=== PATIENT | female | born 1955 | race Caucasian/White ===

== ENCOUNTER → 2017-12-06 09:00 | Outpatient (CLI) | payer OTHER, SELFPAY ==
[2017-12-06 10:02] LABS: Absolute Lymphocyte Count 1.74 X10^3/ul (0.83-4.51); Absolute Neutrophil Count 4.2 X10^3/uL (2.0-7.7); Basophil# 0.03 X10^3/uL; Basophil% 0.5 % (0-1); Differential Indicated SCAN CRITERIA MET; Eosinophil# 0.08 X10^3/uL; Eosinophils% 1.2 % (0-5); Hematocrit 36.4 % (37-47); Lymphocyte # 1.74 X10^3/ul (4.0); Lymphocyte % 26.5 % (19-41); Mean Corp Hgb Conc 30.2 g/gl (32-36); Mean Corpuscular Volume 72.8 fL (81-99); Mean Platelet Vol. 9.6 fl (6.2-12.0); Monocyte# 0.51 X10^3/uL; Monocyte% 7.8 % (0-10); Neutrophil # 4.18 X10^3/uL (2.7-7.7); Neutrophil % 63.7 % (47-70); POSITIVE COUNT NO; POSITIVE DIFFERENTIAL NO; POSITIVE MORPHOLOGY YES; Platelet Count 378 K/mm3 (150-450); RBC Distribution Width CV 19.4 % (11.6-14.6); RBC Distribution Width SD 49.3 fl (35.1-43.9); White Blood Count 6.6 K/mm3 (4.4-11.0)
[2017-12-06 10:36] LABS: AST(SGOT) 14 U/L (15-37); Alanine Aminotransfer ALT/SGPT 22 U/L (13-56); Albumin, Serum 3.7 g/dL (3.2-5.0); Alkaline Phosphatase 59 U/L (45-117); Anion Gap 8 (5-15); BUN 16 mg/dL (7-18); BUN/Creat Ratio 27.7 RATIO (10-20); Calcium,Total 8.5 mg/dL (8.5-10.1); Chloride 100 mmol/L (98-107); Creatinine, Serum 0.58 mg/dL (0.55-1.02); EST Glomerular Filtration Rate 113 mL/min (>60); Est Glom Filt Rate - Afr Amer 137 mL/min (>60); Globulin 3.6 g/dL (2.2-4.2); Glucose 146 mg/dL (74-106); Potassium 4.5 mmol/L (3.5-5.1); Protein, Total 7.3 g/dL (6.4-8.2); Sodium Level 136 mmol/L (136-145); Thyroid Stim Hormone (TSH) 1.35 uIU/mL (0.358-3.74)
[2017-12-06 10:53] LABS: Anisocytosis 1+; Differential Comment SCAN; Hypochromasia 1+; Microcytosis 1+; Polychromasia 1+
[2017-12-08 08:01] LABS: Hep C Antibodies <0.1 s/co ratio (0.0-0.9)
[2017-12-08 09:55] LABS: Vitamin D,25 Hydroxy 14.7 ng/mL (19.95-100.01)
== END ==
PROVIDERS: Family Provider Family Medicine Geriatric Medicine; PCP Family Medicine Geriatric Medicine; Visit Provider Family Medicine Geriatric Medicine
DX: E11.9 Type 2 diabetes mellitus without complications (principal); E55.9 Vitamin D deficiency, unspecified; I10 Essential (primary) hypertension; Z13.89 Encounter for screening for other disorder
CPT/HCPCS: 36415; 80053; 82306; 84443; 85025; 86803

== ENCOUNTER → 2018-01-05 15:30 | Outpatient (CLI) | payer OTHER, SELFPAY | PROVIDERS: Family Provider Family Medicine Geriatric Medicine; PCP Family Medicine Geriatric Medicine; Visit Provider Family Medicine Geriatric Medicine | DX: R68.83 Chills (without fever) (principal) | CPT/HCPCS: 87633 ==

== ENCOUNTER → 2018-06-10 16:14 | Outpatient (CLI) | payer OTHER, SELFPAY | PROVIDERS: Family Provider Family Medicine Geriatric Medicine; PCP Family Medicine Geriatric Medicine; Visit Provider Family Medicine Geriatric Medicine | DX: E11.9 Type 2 diabetes mellitus without complications (principal); E55.9 Vitamin D deficiency, unspecified; I10 Essential (primary) hypertension ==

== ENCOUNTER → 2018-09-21 15:35 | Outpatient (CLI) | payer OTHER, SELFPAY ==
[2018-09-21 17:43] LABS: ALB/GLOB Ratio 0.9 RATIO (0.9-2.4); AST(SGOT) 17 U/L (15-37); Alanine Aminotransfer ALT/SGPT 27 U/L (13-56); Albumin, Serum 3.7 g/dL (3.2-5.0); Alkaline Phosphatase 79 U/L (45-117); Anion Gap 12 (5-15); BUN 21 mg/dL (7-18); Calcium,Total 8.7 mg/dL (8.5-10.1); Chloride 104 mmol/L (98-107); Creatinine, Serum 0.72 mg/dL (0.55-1.02); EST Glomerular Filtration Rate 87 mL/min (>60); Est Glom Filt Rate - Afr Amer 105 mL/min (>60); Globulin 3.9 g/dL (2.2-4.2); Glucose 159 mg/dL (74-106); Potassium 4.6 mmol/L (3.5-5.1); Protein, Total 7.6 g/dL (6.4-8.2); Sodium Level 138 mmol/L (136-145); Thyroid Stim Hormone (TSH) 1.14 uIU/mL (0.358-3.74)
[2018-09-21 18:38] LABS: Absolute Lymphocyte Count 2.36 X10^3/ul (0.83-4.51); Absolute Neutrophil Count 4.8 X10^3/uL (2.0-7.7); Basophil# 0.05 X10^3/uL; Basophil% 0.6 % (0-1); Eosinophil# 0.09 X10^3/uL; Eosinophils% 1.1 % (0-5); Hematocrit 35.3 % (37-47); Hemoglobin 10.3 g/dl (12.0-15.0); Lymphocyte # 2.36 X10^3/ul (4.0); Lymphocyte % 29.9 % (19-41); Mean Corp Hgb Conc 29.2 g/gl (32-36); Mean Corpuscular Volume 71.9 fL (81-99); Mean Platelet Vol. 9.8 fl (6.2-12.0); Monocyte# 0.54 X10^3/uL; Monocyte% 6.8 % (0-10); Neutrophil # 4.83 X10^3/uL (2.7-7.7); Neutrophil % 61.2 % (47-70); Platelet Count 407 K/mm3 (150-450); RBC Distribution Width CV 18.8 % (11.6-14.6); Red Blood Count 4.91 M/mm3 (4.2-5.4); White Blood Count 7.9 K/mm3 (4.4-11.0)
[2018-09-21 18:41] LABS: Differential Indicated SCAN CRITERIA MET; POSITIVE COUNT NO; POSITIVE DIFFERENTIAL NO; POSITIVE MORPHOLOGY YES
[2018-09-21 22:13] LABS: Differential Comment SCANNED
[2018-09-23 12:51] LABS: Hep C Antibodies <0.1 s/co ratio (0.0-0.9)
== END ==
PROVIDERS: Family Provider Family Medicine Geriatric Medicine; PCP Family Medicine Geriatric Medicine; Visit Provider Family Medicine Geriatric Medicine
DX: I10 Essential (primary) hypertension (principal); Z13.89 Encounter for screening for other disorder
CPT/HCPCS: 36415; 80053; 84443; 85025; 86803

== ENCOUNTER → 2018-10-26 12:52 | Outpatient (CLI) | payer OTHER, SELFPAY ==
[2018-10-06 15:09] VITALS: BMI 69.0
[2018-10-26 13:44] VITALS: BP 178/83; PULSE 100; RESP 18; TEMP 36.8; BMI 72.6
== END ==
LOC: MEDOUTP 12:53
PROVIDERS: Family Provider Family Medicine Geriatric Medicine; PCP Family Medicine Geriatric Medicine; Referring Provider Family Medicine Geriatric Medicine; Visit Provider Family Medicine Geriatric Medicine
DX: K90.9 Intestinal malabsorption, unspecified (principal); D50.9 Iron deficiency anemia, unspecified
CPT/HCPCS: 96365; J1756; J7050; A4216

== ENCOUNTER → 2018-10-28 14:35 | Outpatient (CLI) | payer OTHER, SELFPAY ==
[2018-10-26 13:44] VITALS: BMI 72.6
[2018-10-28 15:01] VITALS: BP 185/73; PULSE 83; RESP 16; TEMP 36.6; O2SAT 98; BMI 72.6
== END ==
LOC: MEDOUTP 14:35
PROVIDERS: Family Provider Family Medicine Geriatric Medicine; PCP Family Medicine Geriatric Medicine; Referring Provider Family Medicine Geriatric Medicine; Visit Provider Family Medicine Geriatric Medicine
DX: K90.9 Intestinal malabsorption, unspecified (principal); D50.9 Iron deficiency anemia, unspecified
CPT/HCPCS: 96365; J1756; A4216

== ENCOUNTER → 2018-10-29 14:46 | Outpatient (CLI) | payer OTHER, SELFPAY ==
[2018-10-26 13:44] VITALS: BMI 72.6
[2018-10-28 15:01] VITALS: BMI 72.6
[2018-10-29 15:26] VITALS: BP 98/68; PULSE 80; RESP 16; TEMP 36.6; O2SAT 97; BMI 72.6
== END ==
PROVIDERS: Family Provider Family Medicine Geriatric Medicine; PCP Family Medicine Geriatric Medicine; Referring Provider Family Medicine Geriatric Medicine; Visit Provider Family Medicine Geriatric Medicine
DX: K90.9 Intestinal malabsorption, unspecified (principal); D50.9 Iron deficiency anemia, unspecified
CPT/HCPCS: 96365; J1756; J7050; A4216

== ENCOUNTER → 2018-10-30 14:31 | Outpatient (CLI) | payer OTHER, SELFPAY ==
[2018-10-26 13:44] VITALS: BMI 72.6
[2018-10-29 15:26] VITALS: BMI 72.6
[2018-10-30 14:58] VITALS: BP 158/93; PULSE 73; RESP 16; TEMP 36.2; O2SAT 98; BMI 72.6
== END ==
PROVIDERS: Family Provider Family Medicine Geriatric Medicine; PCP Family Medicine Geriatric Medicine; Referring Provider Family Medicine Geriatric Medicine; Visit Provider Family Medicine Geriatric Medicine
DX: D50.9 Iron deficiency anemia, unspecified (principal); K90.9 Intestinal malabsorption, unspecified
CPT/HCPCS: 96365; J1756; J7050; A4216

== ENCOUNTER → 2018-11-02 12:29 | Outpatient (CLI) | payer OTHER, SELFPAY ==
[2018-10-26 13:44] VITALS: BMI 72.6
[2018-10-30 14:58] VITALS: BMI 72.6
[2018-11-02 12:37] VITALS: BP 181/72; PULSE 77; RESP 18; TEMP 36.6; O2SAT 99; BMI 72.6
== END ==
PROVIDERS: Family Provider Family Medicine Geriatric Medicine; PCP Family Medicine Geriatric Medicine; Referring Provider Family Medicine Geriatric Medicine; Visit Provider Family Medicine Geriatric Medicine
DX: D50.9 Iron deficiency anemia, unspecified (principal); K90.9 Intestinal malabsorption, unspecified
CPT/HCPCS: 96365; 96366; J1756; J7050; A4216

== ENCOUNTER → 2018-11-12 07:00 | Outpatient (CLI) | payer OTHER, SELFPAY ==
[2018-11-02 12:37] VITALS: BMI 72.6
--- NOTE | 2018-11-12 06:58 | BI_ITS ---
MAMMOGRAPHY - BILATERAL SCREENING REASON FOR EXAM: Female, 62 years old. Routine annual screening examination. PERTINENT HISTORY: Non-contributory. TECHNIQUE: Digital bilateral breast salud (3D mammographic acquisition) in the CC and MLO projections. 2-D mediolateral oblique (MLO) and craniocaudad (CC) views of both breasts were obtained. CAD: Full Field Digital Mammography with Computer Added Detection was performed. COMPARISON: Comparison is made with prior study dated October 16, 2016 and January 20, 2014. FINDINGS: Breast Composition: The breasts are almost entirely fatty. There are no dominant masses or suspicious calcifications. No other significant abnormalities are identified. There has been no significant change since the prior study. BI/SCREENING MAMM (CAD), BILAT IMPRESSION: Stable bilateral screening mammogram. Yearly follow-up mammogram recommended. (A) ASSESSMENT CATEGORY: BIRADS Category 1: Negative. A letter regarding these results will be sent to the patient by the facility within 30 days. Approximately 10% of breast cancers are not detected by mammography. A normal mammogram should not delay biopsy of a clinically suspicious abnormality. [id number] Electronically Signed: Ham Kaplan MD at 8:37 EST Tel [phone], Service support ,
== END ==
PROVIDERS: Family Provider Family Medicine Geriatric Medicine; PCP Family Medicine Geriatric Medicine; Visit Provider Family Medicine Geriatric Medicine
DX: Z12.31 Encounter for screening mammogram for malignant neoplasm of breast (principal)
CPT/HCPCS: 77063; 77067

== ENCOUNTER 2019-01-01 09:21 | Observation (INO) | payer OTHER, SELFPAY ==
[2018-11-02 12:37] VITALS: BMI 72.6
[2019-01-01] VITALS (8 sets, daily range): BP systolic 121–145; BP diastolic 68–85; PULSE 69–101; RESP 15–18; TEMP 35.6–36.7; O2SAT 92–99; BMI 71.2; BMI 71.3; BMI 72.7
--- NOTE | 2019-01-01 09:37 | CT_ITS ---
STUDY: CTA OF THE BRAIN REASON FOR EXAM: Female, 63 years old. Headaches. Neck pain. RADIATION DOSAGE (If Supplied By Facility): CTDIvol = ( 29.92 ) mGy, DLP = ( 1069.53 ) mGycm TECHNIQUE: CT angiography was performed with a multi-detector CT scanner. Data acquisition was obtained from the skull base through the vertex following intravenous administration of Isovue 370 100ML IV. MIP images were reconstructed from the axial data set. Post-processing of the angiographic images was performed, with multiplanar reformation and 3D reconstruction. Individualized dose optimization techniques were used for this CT. COMPARISON: None. FINDINGS: Normal bilateral petrous carotid arteries. There is calcified plaque formation of the right cavernous carotid artery, without a cross-sectional luminal stenosis. There is calcified plaque formation of the left cavernous carotid artery, without a cross-sectional luminal stenosis. Normal right A1 segments of the anterior cerebral artery. Normal left A1 segments of the anterior cerebral artery. Normal intact anterior communicating artery (ACOM). Normal bilateral A2 segments of the anterior cerebral arteries. Normal right M1 and M2 segments of the middle cerebral arteries, with a normal M1 bifurcation. Normal left M1 and M2 segments of the middle cerebral arteries, with a normal M1 bifurcation. Normal right posterior communicating artery (PCOM). Normal left posterior communicating artery (PCOM). Normal bilateral vertebral arteries. Normal basilar artery with a normal basilar bifurcation. The visualized bilateral superior cerebellar (SCA) arteries are normal. Normal bilateral P1, P2 and visualized P3 segments of the posterior cerebral arteries. There is no demonstrated aneurysm of the [place] of [place]. There is no demonstrated abnormality of the visualized brain. CT/CTA Head W/WO Contrast IMPRESSION: Normal [place] of [place] without a demonstrated aneurysm or hemodynamically significant stenosis. Electronically Signed: Ham Kaplan, at 11:03 EST , Service support ,
--- NOTE | 2019-01-01 09:37 | CT_ITS ---
STUDY: CT BRAIN WITHOUT CONTRAST REASON FOR EXAM: Female, 63 years old. Severe headaches. RADIATION DOSAGE (If Supplied By Facility): CTDIvol = ( 44.99 ) mGy, DLP = ( 779.24 ) mGycm TECHNIQUE: Transaxial CT imaging of the brain was performed without administration of intravenous contrast material. Individualized dose optimization techniques were used for this CT. COMPARISON: Comparison is made with prior study dated March 03, 2010. FINDINGS: Normal soft tissue structures. There is hyperostosis frontalis internus. Normal size ventricles and extra-axial spaces for the patient's age. Normal white matter tracts of the cerebral hemispheres. Normal basal ganglia and thalami. Normal brainstem. Normal cerebellum. There is no intracranial hemorrhage. There are no findings of an acute ischemic infarction. Normal visualized paranasal sinuses. CT/Brain/Head without Contrast IMPRESSION: Normal unenhanced CT scan of the brain. Electronically Signed: Ham Kaplan, at 11:39 EST , Service support ,
--- NOTE | 2019-01-01 09:37 | CT_ITS ---
STUDY: CTA NECK WITH CONTRAST REASON FOR EXAM: Female, 63 years old. Severe headaches and neck pain. Paresthesia of the left upper extremity. RADIATION DOSAGE (If Supplied By Facility): CTDIvol = ( ) mGy, DLP = ( ) mGycm TECHNIQUE: CT angiography with multi-detector data acquisition was performed from the aortic arch to the skull base following intravenous administration of Isovue 370 100ML IV. MIP images were reconstructed from the axial data set. Post-processing of the angiographic images was performed, with multiplanar reformation and 3D reconstruction. Individualized dose optimization techniques were used for this CT. COMPARISON: None. FINDINGS: Inhomogeneous enlargement of the thyroid. AORTIC ARCH: There is atherosclerotic calcific plaque formation of the aortic arch and great vessels arising from the aortic arch, without a hemodynamically significant stenosis. There is a normal origin of the brachiocephalic, left common carotid, and left subclavian arteries. RIGHT CAROTID ARTERIES: Normal right common carotid artery (CCA). Normal right common carotid bulb. Normal origin of the right internal carotid (ICA) artery without a hemodynamically significant stenosis. Normal visualized cervical portion of the right internal carotid artery. Normal origin of the right external carotid artery (ECA). LEFT CAROTID ARTERIES: Normal left common carotid artery (CCA). Normal left common carotid bulb. Normal origin of the left internal carotid (ICA) artery without a hemodynamically significant stenosis. Normal visualized cervical portion of the left internal carotid artery. Normal origin of the left external carotid artery (ECA). VERTEBRAL ARTERIES: Normal bilateral vertebral arteries. CT/CTA Neck W/WO Contrast IMPRESSION: Normal bilateral cervical carotid and vertebral arteries. Electronically Signed: Ham Kaplan, at 11:02 EST , Service support ,
[2019-01-01] MEDS: 0.9% Normal Saline 1,000 ML 150 ML IV (10:07)
[2019-01-01] MEDS: proMETHazine 25 MG/ML Syringe 12.5 MG IV (10:07)
[2019-01-01] MEDS: Morphine 4 MG/ML Syringe IV ×2 (10:07→11:10)
[2019-01-01 10:16] LABS: Anion Gap 6 (5-15); BUN 24 mg/dL (7-18); BUN/Creat Ratio 32.5 RATIO (10-20); Calcium,Total 8.8 mg/dL (8.5-10.1); Chloride 105 mmol/L (98-107); Creatinine, Serum 0.74 mg/dL (0.55-1.02); EST Glomerular Filtration Rate 85 mL/min (>60); Est Glom Filt Rate - Afr Amer 103 mL/min (>60); Glucose 114 mg/dL (74-106); Potassium 4.3 mmol/L (3.5-5.1); Sodium Level 137 mmol/L (136-145)
[2019-01-01 10:25] LABS: Erythrocyte Sedimentation Rate 21 mm/hr (0-30)
[2019-01-01 10:31] LABS: Absolute Lymphocyte Count 2.09 X10^3/ul (0.83-4.51); Absolute Neutrophil Count 3.3 X10^3/uL (2.0-7.7); Basophil# 0.03 X10^3/uL; Basophil% 0.5 % (0-1); Differential Indicated SCAN CRITERIA MET; Eosinophil# 0.08 X10^3/uL; Eosinophils% 1.4 % (0-5); Hematocrit 42.3 % (37-47); Hemoglobin 13.3 g/dl (12.0-15.0); Lymphocyte # 2.09 X10^3/ul (4.0); Lymphocyte % 35.5 % (19-41); Mean Corp Hgb Conc 31.4 g/gl (32-36); Mean Corpuscular Hgb 25.7 pg (27.0-32.0); Mean Corpuscular Volume 81.8 fL (81-99); Monocyte# 0.37 X10^3/uL; Monocyte% 6.3 % (0-10); Neutrophil # 3.31 X10^3/uL (2.7-7.7); Neutrophil % 56.1 % (47-70); POSITIVE COUNT NO; POSITIVE DIFFERENTIAL NO; POSITIVE MORPHOLOGY YES; Platelet Count 294 K/mm3 (150-450); RBC Distribution Width CV 24.2 % (11.6-14.6); RBC Distribution Width SD 68.4 fl (35.1-43.9); Red Blood Count 5.17 M/mm3 (4.2-5.4); White Blood Count 5.9 K/mm3 (4.4-11.0)
--- NOTE | 2019-01-01 11:14 | MRI_ITS ---
STUDY: MRI BRAIN WITHOUT CONTRAST REASON FOR EXAM: Female, 63 years old. Left hand numbness, headache TECHNIQUE: Standardized multiplanar fat and water weighted pulse sequences were obtained. COMPARISON: None CT head same day FINDINGS: Diffusion weighted sequence is normal. There are a few punctate areas of increased T2 signal within the deep white matter.. Normal bilateral basal ganglia. Normal thalami. There is no extra-axial fluid accumulation. Normal flow voids within the major intracranial circulation suggesting patency by spin echo criteria. Normal sella turcica, pituitary gland, infundibular stalk, optic chiasm and hypothalamus. Normal tectal plate and pineal gland. Normal midbrain, trisha and medulla. Normal cerebellum. Normal basal cisterns. Normal bilateral temporal bones. Normal bilateral internal auditory canals. No demonstrated orbital abnormality, within the constraints of a routine brain study. Normal visualized paranasal sinuses. Normal calvarium and skull base. Normal visualized soft tissue structures. Normal visualized upper cervical spine. MRI/Brain without Contrast IMPRESSION: No MRI evidence for acute infarct Minimal increased T2 signal abnormalities within the white matter which could represent old small vessel ischemic changes versus Virchow-Junior spaces Electronically Signed: Nash Bill, at 16:22 EST Tel , Service support ,
--- NOTE | 2019-01-01 11:14 | MRI_ITS ---
STUDY: MRI CERVICAL SPINE WITHOUT CONTRAST REASON FOR EXAM: Female, 63 years old. A simple headache, left hand radiculopathy, numbness TECHNIQUE: Standardized fat and water weighted pulse sequences were obtained in the sagittal and axial planes. COMPARISON: None FINDINGS: Normal foramen magnum and brainstem-cervical cord junction. There are degenerative changes at C1-C2. Normal anterior atlantoaxial articulation. Normal odontoid process. There is loss of normal cervical lordosis.. Normal vertebral bodies and posterior osseous elements. C2-3: Normal endplates. Normal disc height, signal and morphology. Normal central canal and intervertebral neural foramina. C3-4: Normal endplates. Normal disc height, signal and morphology. Normal central canal and intervertebral neural foramina. There is mild to moderate left facet degenerative changes with moderate right facet degenerative changes. C4-5: There is posterior bulging annulus with disc osteophyte complex. There is increased T2 signal within the posterior disc margin. There is mild cord compression and mild central canal stenosis. There is mild right foraminal and left foraminal stenosis. There is Significant uncinate hypertrophy. There are moderate facet degenerative changes. C5-6: There is disc space narrowing. There is mild posterior broad-based posterior bulging annulus. There is significant uncinate hypertrophy and mild central canal stenosis. There is mild bilateral foraminal stenosis. There are moderate facet degenerative changes. There are Schmorl's nodes at C5 and C6. C6-7: There is mild posterior bulging annulus. There is uncinate hypertrophy. There is mild facet spondylosis. No central canal or foraminal stenosis C7-T1: Normal endplates. Normal disc height, signal and morphology. Normal central canal and intervertebral neural foramina. Normal cervical cord. Normal visualized soft tissue structures. MRI/Spine Cervical (Routine) IMPRESSION: Loss of normal cervical lordosis likely due to muscular spasm Multilevel spondylosis as above multilevel disc osteophyte complexes uncinate hypertrophy, facet spondylosis with multilevel mild central canal and foraminal stenoses Electronically Signed: Nash Bill, at 16:31 EST Tel , Service support ,
--- NOTE | 2019-01-01 11:15 | ED.DCSUM_ITS ---
- ER Visit Summary Date of Service: 01/01/19 Chief Complaint: [Headache and neck pain] History of Present Illness: The patient is a 63 F [presents to the emergency department with complaint of severe headache. Patient states that initially he started with paresthesias off and on in her left arm yesterday. Patient states that she has arthritis and has had history of carpal tunnel so she did not think much of it. This morning around 6:30 AM patient developed severe headache to the left side of her head and left thigh. Patient complains of pain at the base of her skull on the left. She denies any falls or head injuries. She denies any fever or recent illness. She is never had a headache like this before. Patient does complain of photophobia. She is had no nausea or vomiting. Patient is never had a headache like this before. Patient denies any weakness or difficulty with speech.] Physical Examination: [HEENT-PERRLA, EOMI. Cranial nerves II through XII grossly intact. TMs clear. Mucous membranes moist. No adenopathy. Patient does have some tenderness over the left upper neck and Cardiovascular-regular rate and rhythm without murmur or ectopy Lungs-clear to auscultation, chest wall stable without crepitus or subcu emphysema Abdomen-normoactive bowel sounds, soft, nontender, no rebound or rigidity, no peritoneal signs. Neuro nept-bnqfai-vvlk and heel buenrostro testing within normal limits, negative Romberg, negative pronator drift, fundi benign. NIH stroke scale is 0. Extremities-intact ?4, normal range of motion, normal pulses, atraumatic] Test Results: [CT scan of the brain without contrast as well as CTA of the head and neck were normal. CBC with differential is normal. Chemistries were normal. Sed rate was 21.] Emergency Department Course and Treatment: [Patient initially was medicated with morphine and Phenergan as well as IV fluids. Initially she had good pain relief and her pain went on a 4 out of 10. The pain did return and became severe once again and she was given another dose of morphine and was started on Depakote thousand milligrams IV.] Treatment Plan: [Patient will be admitted for further workup and treatment. At this point I do not suspect stroke although she is not a TPA candidate as her NIH was a 0 and she is had symptoms for greater than 12 hours. At this point I do not suspect a subarachnoid hemorrhage as the etiology of her symptoms. Possible she may have an occipital neuritis.] Disposition: [Admit] Impression: [Intractable headache Neck pain Paresthesias left arm] This note was generated with Crystal [employer] dictation software. It may contain incorrect words, spelling, and punctuation that were not noted in review of the chart prior to signing ED Disposition - Plan for ED Patient: Referrals: Tani Diez Chi, MD [Primary Care Provider] -
--- NOTE | 2019-01-01 11:16 | NURSING ---
MED SURG ASHTYN OBS INTRACTABLE HEADACHE, PARAESTHESIAS LEFT ARM
--- NOTE | 2019-01-01 11:28 | PCM.HP.STD ---
Problem List (1) Diabetes mellitus type 2 in obese Status: Chronic (2) Hypertension Status: Chronic (3) Degenerative joint disease Status: Chronic (4) Status post total knee replacement, bilateral Status: Chronic (5) Rheumatoid arthritis Status: Chronic (6) Neck pain Status: Acute (7) Cervical neuropathy Status: Acute History of Present Illness Date of Admission: 01/01/19 Chief Complaint: Sudden onset of headache and neck pain today The patient is a 63 year old F morbid obesity BMI 71, diabetes mellitus type 2 came to headache with sudden onset of neck pain with severe headache. She woke up today at 6:30 AM with severe headache along with left side of head and neck. She also has left upper extremity numbness which started yesterday but got worse today. She has chronic weakness of bilateral hand muscle secondary to carpal tunnel syndrome. Denies previous history of headache, neck pain or migraine or seizure disorder. Denies temporal headache. Denies lower extremity weakness. Normal lower urinary tract symptoms/constipation. No abnormal involuntary movements She has chronic rheumatologic disease including severe degenerative joint disease status post bilateral TKR, rheumatoid arthritis. Initial imaging studies in the ER including CT brain, CTA head and neck was unremarkable. Basic blood work is remarkable CRP 3.38, ESR 21, BUN 24. Past Medical History Past Medical History (Chronic Problems): Chronic Problems (Last Updated 10/06/18 @ 15:11 by Felicita Jacob) Diabetes mellitus type 2 in obese (Chronic) Hypertension (Chronic) Degenerative joint disease (Chronic) Status post total knee replacement, bilateral (Chronic) Rheumatoid arthritis (Chronic) Medical History: Medical History (Last Updated 10/06/18 @ 15:11 by Felicita Jacob) Anemia D64.9 Anxiety F41.9 Carpal tunnel syndrome G56.00 Environmental allergies Z91.09 Fibromyalgia M79.7 Osteoarthritis M19.90 Rheumatoid arthritis M06.9 Hypertension I10 Allergies codeine Adverse Reaction (Verified 01/01/19 09:22) Other enoxaparin sodium [From Lovenox] Adverse Reaction (Verified 01/01/19 09:22) Other Home Medications: Ambulatory Orders Medication Instructions Recorded Citalopram [Celexa] 20 mg PO DAILY 03/29/16 Cyclobenzaprine [Flexeril] 10 mg PO DAILY PRN 03/29/16 Gabapentin [Neurontin] 300 mg PO DAILY 03/29/16 Lisinopril [Zestril] 20 mg PO DAILY 03/29/16 Cholecalciferol (Vitamin D3) 2,000 unit PO QMONTH 11/01/16 [Vitamin D3] Iron Polysaccharide Complex 150 mg PO DAILY 11/01/16 [Ferrex 150] Metformin HCl [Glucophage] 500 mg PO BIDCM 11/01/16 Gabapentin [Neurontin] 600 mg PO QHS 01/01/19 Surgical History: Surgical History (Last Updated 10/06/18 @ 15:12 by Felicita Jacob) History of 2 sections Z98.891 History of bilateral knee replacement Z96.653 History of gastric bypass Z98.84 History of thumb surgery Z98.890 Smoking Status: Never smoker Review of Systems Constitutional: Denies: Chills, Fever, Weight Change HEENT: Reports: Head Aches, Visual Changes - Blurry vision and photophobia, -. Denies: Sinus Congestion, Sinus Drainage Cardiovascular: Denies: Chest Pain, Palpitations Respiratory: Denies: Cough, Shortness of breath at rest, Sputum production Gastrointestinal: Denies: Abdominal Pain, Nausea, Vomiting Genitourinary: Denies: Dysuria, Frequency, Hematuria, Hesitancy, Retention, Urgency Musculoskeletal: Reports: Joint Pain, Joint stiffness, Joint swelling, Neck Pain. Denies: Joint Tenderness Skin: Denies: Rash, Wounds Neurological: Reports: Balance problems, Incoordination. Denies: Focal weakness, Numbness, Tingling Psychiatric: Denies: Anxiety, Depression, Homicidal Ideations, Suicidal Ideations Hematologic/ Lymphatic: Denies: Easy Bruising, Easy Bleeding VTE Information - Inpt Only VTE Present on Admission: No VTE Mechan Device Prophylaxis: SCD's VTE Pharm Prophylaxis ordered?: No Reason prophylaxis not ordered:: Drug Allergy - Physical Exam General: Alert, Oriented x3, Cooperative HEENT: Atraumatic, PERRLA, EOMI, Normocephalic Neck: Supple, No JVD, Negative Carotid Bruits Lungs: Clear to auscultation, No rhonchi, No wheeze, No rales, Diminished Cardiovascular: Regular rate, Regular Rhythm, Normal S1, Normal S2, No murmurs Abdomen: Bowel Sounds Present, Soft, Non Tender, Non-Distended Extremities: No edema, Capillary Refill Less than 3 Seconds Skin: No rashes, No breakdown Musculoskeletal: No Tenderness to Palpation of Joints or Extremities, Arthritic Changes, Tenderness - Neck, C-spine tenderness Neurological: Cranial nerves II-XII grossly intact, Deep Tendon Reflexes 2+/4 and Symmetrical, - - Strength is 5/5 in upper extremity and arm and forearm. Bilateral chronic hand weakness secondary to carpal tunnel syndrome Psych/Mental Status: Normal Affect, Appropriate Vital Signs Temp Pulse Resp BP Pulse Ox 96.0 F L 101 H 15 121/85 H 98 01/01/19 09:22 01/01/19 09:22 01/01/19 09:22 01/01/19 09:22 01/01/19 09:22 Oxygen Delivery Method Room Air Weight: 402 lb 5.498 oz Body Mass Index (BMI) 71.2 Laboratory Tests Past 24 Hrs 01/01/19 01/01/19 09:55 09:55 WBC 5.9 RBC 5.17 Hgb 13.3 Hct 42.3 MCV 81.8 MCH 25.7 L MCHC 31.4 L RDW 24.2 H RDW Differential 68.4 H Plt Count 294 MPV 10.0 Immature Gran % (Auto) 0.200 Neut % (Auto) 56.1 Lymph % (Auto) 35.5 [place] % (Auto) 6.3 Eos % (Auto) 1.4 Baso % (Auto) 0.5 Absolute Neuts (auto) 3.3 Absolute Lymphs (auto) 2.09 Total Counted Not Reportable Differential Comment COMMENT ESR 21 Sodium 137 Potassium 4.3 Chloride 105 Carbon Dioxide 26.0 Anion Gap 6 BUN 24 H Creatinine 0.74 Estim Creat Clear Calc 65.20 Est GFR (MDRD) Af Amer 103 Est GFR (MDRD) Non-Af 85 BUN/Creatinine Ratio 32.5 H Glucose 114 H Calcium 8.8 Assessment/Plan All Active Problems (Last Updated 10/06/18 @ 15:11 by Felicita Jacob) Neck pain (Acute) Cervical neuropathy (Acute) The patient is a 63 year old F morbid obesity BMI 71, diabetes mellitus type 2 came to [facility] with sudden onset of neck pain with severe headache. She woke up today at 6:30 AM with severe headache along with left side of head and neck. She also has left upper extremity numbness which started yesterday but got worse today. She has chronic weakness of bilateral hand muscle secondary to carpal tunnel syndrome. Denies previous history of headache, neck pain or migraine or seizure disorder. Denies temporal headache. Denies lower extremity weakness. Normal lower urinary tract symptoms/constipation. No abnormal involuntary movements She has chronic rheumatologic disease including severe degenerative joint disease status post bilateral TKR, rheumatoid arthritis. Initial imaging studies in the ER including CT brain, CTA head and neck was unremarkable. Basic blood work is remarkable CRP 3.38, ESR 21, BUN 24. 1. Severe neck pain and headache with left upper extremity paresthesias history of possible cervical neuropathy: Patient is being admitted in PCU. Discussed with neurologist Dr. Garcia. MRI brain and C-spine ordered. IV fluid normal saline. Patient is started on valproic acid 1 g in the ER and will add 500 mg more to make a total of 1500 mg. Further management as per neurologist recommendation. 2. Diabetes mellitus type 2 with diabetic neuropathy: Accu-Chek before meals and at bedtime and cover with NovoLog sliding scale. A1c tomorrow a.m. 3. Rheumatology conditions: Bilateral diffuse degenerative joint disease, rheumatoid arthritis, hypovitaminosis D: Home medication reconciliation done. PT and OT ordered. 4. Morbid obesity status post gastric bypass surgery 5. DVT prophylaxis: The patient gets open wound after Lovenox injection. Avoid injectable heparin products.started On Eliquis 2.5 mg twice daily Clinical Impression(s) from Imaging Studies Brain CT 01/01/19 09:37 IMPRESSION: Normal unenhanced CT scan of the brain. Head CTA 01/01/19 09:37 IMPRESSION: Normal [place] of [place] without a demonstrated aneurysm or hemodynamically significant stenosis. Neck CTA 01/01/19 09:37 IMPRESSION: Normal bilateral cervical carotid and vertebral arteries. Code Visit OBS E&M: [id number] Initial observation care L3
[2019-01-01 11:49] LABS: CRP 3.38 mg/L (0.0-3.0)
--- NOTE | 2019-01-01 11:53 | CASEMGMT ---
RN CM Assessment Introduced role of RN CM to patient and at bedside. Patient is alert, oriented but d/t headache with lights dimmed- patient agreeable with providing information. Care providers, pharmacy, and demographics verified. Presentation: Admitted for Intractable LOPEZ. CC: LOPEZ/Neck pain. PCP: Dr Tani Diez Specialists: None Preferred Pharmacy: [facility] Insurance: [employer] Prescription Benefit: Yes LNOK: Derik Joe #[phone] Living Arrangements: Patient works for [employer], Lives with her in a Mobile home with ramp. Ambulates independently and with cane as needed. Independent with ADL's. Transportation: Patient drives, to transport on [place]. DME: Cane, Glucometer. Preference of DME Company- through insurance. HHC: Denies past, preference through insurance. SNF: Denies past, preference through insurance. DC PLAN: Home with and no anticipated needs identified. Zulma Parra RNCM
--- NOTE | 2019-01-01 12:18 | ED.RN ---
iv infiltrated unable to administer depacon. dr. sloan aware. keyla to try an iv.
--- NOTE | 2019-01-01 13:02 | PCM.CONS.GEN ---
Problem List (1) Headache Status: Acute (2) Neck pain Status: Acute Reason for Consult Date of Consultation: 01/01/19 Reason for Consultation: Headache, neck pain History of Present Illness: The patient is a 63 year old F with PMH HTN, DM, RA, morbid obesity admitted with severe headache and neck pain. Per patient she woke up at around 4:30 AM this morning (01/01/19), then went to work and around 6:30 AM started having severe occipital headache along with neck pain, with headache radiating to the front on the right side, with stabbing pain in the eye, per patient headache was severe, had photophobia, phonophobia, blurred vision, denies any vomiting, per patient she also felt that her left arm was tingly and numb. She denies any focal motor weakness, speech disturbances, facial droop, vision loss, temporal tenderness or jaw claudication. Per patient she does not get any migraines often. She lives with her , uses cane occasionally when walks long distances, denies any frequent falls, and does drive. CT head and CTA head/neck done on admission did not show anything acute, did not show any hemodynamically significant stenosis or occlusion. Denies any fever or tick bite. [] Past Medical History Past Medical History (Chronic Problems): Chronic Problems (Last Updated 10/06/18 @ 15:11 by Felicita Jacob) Diabetes mellitus type 2 in obese (Chronic) Hypertension (Chronic) Degenerative joint disease (Chronic) Status post total knee replacement, bilateral (Chronic) Rheumatoid arthritis (Chronic) Medical History: Medical History (Last Updated 10/06/18 @ 15:11 by Felicita Jacob) Anemia D64.9 Anxiety F41.9 Carpal tunnel syndrome G56.00 Environmental allergies Z91.09 Fibromyalgia M79.7 Osteoarthritis M19.90 Rheumatoid arthritis M06.9 Hypertension I10 Allergies codeine Adverse Reaction (Verified 01/01/19 09:22) Other enoxaparin sodium [From Lovenox] Adverse Reaction (Verified 01/01/19 09:22) Other Home Medications: Ambulatory Orders Medication Instructions Recorded Citalopram [Celexa] 20 mg PO DAILY 03/29/16 Cyclobenzaprine [Flexeril] 10 mg PO DAILY PRN 03/29/16 Gabapentin [Neurontin] 300 mg PO DAILY 03/29/16 Lisinopril [Zestril] 20 mg PO DAILY 03/29/16 Cholecalciferol (Vitamin D3) 2,000 unit PO QMONTH 11/01/16 [Vitamin D3] Iron Polysaccharide Complex 150 mg PO DAILY 11/01/16 [Ferrex 150] Metformin HCl [Glucophage] 500 mg PO BIDCM 11/01/16 Gabapentin [Neurontin] 600 mg PO QHS 01/01/19 Surgical History: Surgical History (Last Updated 10/06/18 @ 15:12 by Felicita Jacob) History of 2 sections Z98.891 History of bilateral knee replacement Z96.653 History of gastric bypass Z98.84 History of thumb surgery Z98.890 Lives: Spouse/ Significant Other Smoking Status: Never smoker Alcohol: None Drugs: None Review of Systems Constitutional: Reports: - - complete ROS negative except as documented in HPI Patient Problems: Active and Suspected Problems (Last Updated 10/06/18 @ 15:11 by Felicita Jacob) Headache (Acute) - Physical Exam General: Alert HEENT: Normocephalic Neck: Supple Lungs: Normal air movement Cardiovascular: Normal S1, Normal S2 Abdomen: Bowel Sounds Present Extremities: No cyanosis Neurological: - - consious, alert, AoA x3, CN 2-12 grossly intact, power 5/5 all 4 extremities, no sensory loss, no cerebellar signs, no NR, No Brudzinki's sign or Kernig's sign, Reflexes + B/L B/S/T/K/A, gait deferred, Fundus not visualized Psych/Mental Status: Normal Affect Vital Signs Temp Pulse Resp BP Pulse Ox 96.0 F L 101 H 15 121/85 H 98 01/01/19 09:22 01/01/19 09:22 01/01/19 09:22 01/01/19 09:22 01/01/19 09:22 Oxygen Delivery Method Room Air Weight: 182.5 kg Body Mass Index (BMI) 71.2 Laboratory Tests Past 24 Hrs 01/01/19 01/01/19 01/01/19 09:55 09:55 09:55 WBC 5.9 RBC 5.17 Hgb 13.3 Hct 42.3 MCV 81.8 MCH 25.7 L MCHC 31.4 L RDW 24.2 H RDW Differential 68.4 H Plt Count 294 MPV 10.0 Immature Gran % (Auto) 0.200 Neut % (Auto) 56.1 Lymph % (Auto) 35.5 [place] % (Auto) 6.3 Eos % (Auto) 1.4 Baso % (Auto) 0.5 Absolute Neuts (auto) 3.3 Absolute Lymphs (auto) 2.09 Total Counted Not Reportable Differential Comment COMMENT ESR 21 Sodium 137 Potassium 4.3 Chloride 105 Carbon Dioxide 26.0 Anion Gap 6 BUN 24 H Creatinine 0.74 Estim Creat Clear Calc 65.20 Est GFR (MDRD) Af Amer 103 Est GFR (MDRD) Non-Af 85 BUN/Creatinine Ratio 32.5 H Glucose 114 H Calcium 8.8 C-React Prot Ext Range 3.38 H Assessment/Plan All Active Problems (Last Updated 10/06/18 @ 15:11 by Felicita Jacob) Neck pain (Acute) Cervical neuropathy (Acute) Headache (Acute) The patient is a 63 year old F with PMH HTN, DM, RA, morbid obesity admitted with severe headache and neck pain. Per patient she woke up at around 4:30 AM this morning (01/01/19), then went to work and around 6:30 AM started having severe occipital headache along with neck pain, with headache radiating to the front on the right side, with stabbing pain in the eye, per patient headache was severe, had photophobia, phonophobia, blurred vision, denies any vomiting, per patient she also felt that her left arm was tingly and numb. She denies any focal motor weakness, speech disturbances, facial droop, vision loss, temporal tenderness or jaw claudication. Per patient she does not get any migraines often. She lives with her , uses cane occasionally when walks long distances, denies any frequent falls, and does drive. CT head and CTA head/neck done on admission did not show anything acute, did not show any hemodynamically significant stenosis or occlusion. Denies any fever or tick bite. Impression Acute onset LOPEZ/neck pain Possible Status migrainosus vs R/O Cervical radiculopathy Plan -Check MRI brain w/o contrast -Check MRI C spine w/o contrast -ESR-21 -Labs reviewed -Trial of Decadron 4 mg IV q 6 hrly for 24-48 hrs then stop -Toradol 30 mg IV PRN severe LOPEZ q 6 hrly for 24-48 hrs then stop if no contraindication -Depacon 1 g IV BID for 24-48 hrs then stop -Magnesium Sulphate 1 g IV once -Will hold off LP at present given insufficient clinical indication, unless if LOPEZ does not improve may need to obtain -GI/DVT prophylaxis -Fall precautions -Please call with questions if any -Thank you for allowing us to participate in patient's care and management. Code Visit Inpatient E&M: 97989 Init Hosp L3
[2019-01-01] MEDS: APIXABAN 2.5 MG TABLET PO ×2 (14:21→21:18)
[2019-01-01 14:23] LABS: AST(SGOT) 17 U/L (15-37); Alanine Aminotransfer ALT/SGPT 25 U/L (13-56); Albumin, Serum 3.9 g/dL (3.2-5.0); Alkaline Phosphatase 68 U/L (45-117); Bilirubin, Direct 0.08 mg/dL (0.00-0.30); Globulin 3.6 g/dL (2.2-4.2); Protein, Total 7.5 g/dL (6.4-8.2)
[2019-01-01] MEDS: Ketorolac 30 MG/ML Syringe IV (14:26)
[2019-01-01] MEDS: Magnesium Sulfate 1 GM in 0.9% Normal Saline 100 ML IV (14:27)
[2019-01-01] MEDS: 0.9% Normal Saline 1,000 ML 75 ML IV (14:27)
--- NOTE | 2019-01-01 14:59 | NURSING ---
TO MRI PER BED
[2019-01-01 16:26] LABS: Bedside Glucose 126 mg/dL (70-110)
[2019-01-01] MEDS: Senna/Docusate Sodium 1 Tablet 2 TABLET PO (21:16)
[2019-01-01] MEDS: Famotidine 20 MG Tablet PO (21:17)
[2019-01-01] MEDS: Gabapentin 300 MG Capsule 600 MG PO (21:19)
[2019-01-02] VITALS (11 sets, daily range): BP systolic 123–136; BP diastolic 58–77; PULSE 70–86; RESP 16; TEMP 36.3–36.9; O2SAT 92–96
[2019-01-02] MEDS: 0.9% Normal Saline 1,000 ML 75 ML IV ×2 (05:05→21:33)
[2019-01-02] MEDS: Famotidine 20 MG Tablet PO ×2 (08:44→21:24)
[2019-01-02] MEDS: Gabapentin 300 MG Capsule PO ×3 (08:45→21:30)
[2019-01-02] MEDS: Iron Polysaccharide Complex 150 MG CAPSULE PO (08:45)
[2019-01-02] MEDS: Lisinopril 20 MG Tablet PO (08:45)
[2019-01-02] MEDS: Citalopram 20 MG Tablet PO (08:46)
[2019-01-02] MEDS: APIXABAN 2.5 MG TABLET PO ×2 (08:47→21:24)
--- NOTE | 2019-01-02 10:08 | PCM.PN.HOSP ---
Patient Problems: Active and Suspected Problems (Last Updated 10/06/18 @ 15:11 by Felicita Jacob) Headache (Acute) Subjective: Patient is still complaining of headache. Left arm numbness is same. MRI reviewed and explained to the patient in front of her . No fever or chills. Vitals/I&O's: Vital Signs Temp Pulse Resp BP Pulse Ox 97.3 F L 73 16 126/58 H 96 01/02/19 08:37 01/02/19 08:37 01/02/19 08:37 01/02/19 08:37 01/02/19 08:37 Oxygen Delivery Method Room Air Weight: 397 lb 11.422 oz Body Mass Index (BMI) 72.7 Intake and Output for Last 24 Hours 12/31/18 01/01/19 01/02/19 23:59 23:59 23:59 Intake Total 550 / 550 1539 / 1539 Balance 550 / 550 1539 / 1539 General: Alert, Oriented x3, Cooperative HEENT: Atraumatic, PERRLA, EOMI, Normocephalic Neck: Supple, No JVD, Negative Carotid Bruits Lungs: Clear to auscultation, No rhonchi, No wheeze, No rales, Diminished - Air entry is diminished in bilateral lung bases. Cardiovascular: Regular rate, Regular Rhythm, Normal S1, Normal S2, No murmurs Abdomen: Bowel Sounds Present, Soft, Non Tender, Non-Distended Extremities: No cyanosis, Capillary Refill Less than 3 Seconds, Edema Skin: No rashes, No breakdown Musculoskeletal: No Tenderness to Palpation of Joints or Extremities, Arthritic Changes Neurological: Cranial nerves II-XII grossly intact, - - Mild weakness in both hands. Difficulty in the joint disease of lower extremities with chronic mild weakness. Left upper extremity cervical neuropathy paresthesia Psych/Mental Status: Normal Affect, Appropriate Laboratory Results 01/01/19 09:55: WBC 5.9, RBC 5.17, Hgb 13.3, Hct 42.3, MCV 81.8, MCH 25.7 L, MCHC 31.4 L, RDW 24.2 H, RDW Differential 68.4 H, Plt Count 294, MPV 10.0, Immature Gran % (Auto) 0.200, Neut % (Auto) 56.1, Lymph % (Auto) 35.5, Spencer % (Auto) 6.3, Eos % (Auto) 1.4, Baso % (Auto) 0.5, Absolute Neuts (auto) 3.3, Absolute Lymphs (auto) 2.09, Total Counted Not Reportable, Differential Comment COMMENT, ESR 21 01/01/19 09:55: Sodium 137, Potassium 4.3, Chloride 105, Carbon Dioxide 26.0, Anion Gap 6, BUN 24 H, Creatinine 0.74, Estim Creat Clear Calc 65.20, Est GFR (MDRD) Af Amer 103, Est GFR (MDRD) Non-Af 85, BUN/Creatinine Ratio 32.5 H, Glucose 114 H, Calcium 8.8 01/01/19 09:55: C-React Prot Ext Range 3.38 H 01/01/19 09:55: Total Bilirubin 0.20, Direct Bilirubin 0.08, AST 17, ALT 25, Alkaline Phosphatase 68, Total Protein 7.5, Albumin 3.9, Globulin 3.6 01/01/19 16:18: POC Glucose 126 H Current Medications Al Hydroxide/Mg Hydroxide (Mylanta Ii) 30 ml PO Q6H PRN PRN PRN Reason: Gastric burning Apixaban (Eliquis) 2.5 mg PO BID [facility] Last Admin: 01/02/19 08:47 Dose: 2.5 mg Cholecalciferol (Vitamin D) 2,000 unit PO DAILY [facility] Last Admin: 01/02/19 08:45 Dose: Not Given Citalopram Hydrobromide (Celexa) 20 mg PO DAILY [facility] Last Admin: 01/02/19 08:46 Dose: 20 mg Cyclobenzaprine HCl (Flexeril) 10 mg PO DAILY PRN PRN Reason: MUSCLE SPASM Last Admin: 01/01/19 16:28 Dose: 10 mg Dexamethasone Sodium Phosphate (Decadron) 4 mg IV Q6 [facility] Stop: 01/03/19 14:01 Last Admin: 01/02/19 05:04 Dose: 4 mg Famotidine (Pepcid) 20 mg PO BID [facility] Last Admin: 01/02/19 08:44 Dose: 20 mg Gabapentin (Neurontin) 300 mg PO DAILY [facility] Last Admin: 01/02/19 08:45 Dose: 300 mg Gabapentin (Neurontin) 600 mg PO QHS [facility] Last Admin: 01/01/19 21:19 Dose: 600 mg Sodium Chloride () 1,000 mls @ 75 mls/hr IV .[id number] [facility] Last Admin: 01/02/19 05:05 Dose: 75 mls/hr Valproic Acid 500 mg/ Dextrose 55 mls @ 50 mls/hr IV Q8 [facility] Stop: 01/03/19 22:01 Last Admin: 01/02/19 05:04 Dose: 50 mls/hr Ketorolac Tromethamine (Toradol) 15 mg IV Q6H PRN PRN PRN Reason: severe headache Stop: 01/03/19 15:52 Lisinopril (Zestril) 20 mg PO DAILY [facility] Last Admin: 01/02/19 08:45 Dose: 20 mg [facility] Admin: 01/02/19 08:45 Dose: Not Given Ondansetron HCl (Zofran) 4 mg IV Q8H PRN PRN PRN Reason: NAUSEA Polysaccharide [facility]rex 150) [facility] Last Admin: 01/02/19 08:45 Dose: 150 mg Senna/Docusate Sodium (Senokot-S, Ailyn-Colace) 2 tablet PO BID [facility] Last Admin: 01/02/19 08:45 Dose: Not Given Zolpidem Tartrate (Ambien (Generic)) 5 mg PO QHS PRN PRN PRN Reason: INSOMNIA Medical Necessity - Tobacco Use Smoking Status: Never smoker Tobacco Use: Non-smoker Assessment/Plan All Active Problems (Last Updated 10/06/18 @ 15:11 by Felicita Jacob) Neck pain (Acute) Cervical neuropathy (Acute) Headache (Acute) The patient is a 63 year old F morbid obesity BMI 71, diabetes mellitus type 2 came to [facility] with sudden onset of neck pain with severe headache. She woke up today at 6:30 AM with severe headache along with left side of head and neck. She also has left upper extremity numbness which started yesterday but got worse today. She has chronic weakness of bilateral hand muscle secondary to carpal tunnel syndrome. Denies previous history of headache, neck pain or migraine or seizure disorder. Denies temporal headache. Denies lower extremity weakness. Normal lower urinary tract symptoms/constipation. No abnormal involuntary movements She has chronic rheumatologic disease including severe degenerative joint disease status post bilateral TKR, rheumatoid arthritis. Initial imaging studies in the ER including CT brain, CTA head and neck was unremarkable. Basic blood work is remarkable CRP 3.38, ESR 21, BUN 24. 1. Severe neck pain and headache with left upper extremity paresthesias history of possible cervical neuropathy: Patient is being admitted in PCU. Discussed with neurologist Dr. Garcia. MRI brain and C-spine ordered. IV fluid normal saline. Neurologist consult reviewed. Patient was started on IV valproic in ER and neurologist continued it. CRP 3.38. MRI C-spine shows multilevel spondylosis with multilevel disc osteophyte complexes, facet spondylosis with multilevel mild central canal and foraminal stenoses. There is mild cord compression with mild central canal stenosis in C4-5 with increased T2 signal in the posterior disc margin. Patient on Decadron 4 mg every 6 hourly, Depakote 500 mg IV every 8 hourly and Toradol for pain. 2. Diabetes mellitus type 2 with diabetic neuropathy: Accu-Chek before meals and at bedtime and cover with NovoLog sliding scale. A1c tomorrow a.m. 3. Rheumatology conditions: Bilateral diffuse degenerative joint disease, rheumatoid arthritis, hypovitaminosis D: Home medication reconciliation done. PT and OT ordered. 4. Morbid obesity status post gastric bypass surgery 5. DVT prophylaxis: The patient gets open wound after Lovenox injection. Avoid injectable heparin products.started On Eliquis 2.5 mg twice daily Clinical Impression(s) from Imaging Studies Brain CT 01/01/19 09:37 IMPRESSION: Normal unenhanced CT scan of the brain. Head CTA 01/01/19 09:37 IMPRESSION: Normal [place] without a demonstrated aneurysm or hemodynamically significant stenosis. Neck CTA 01/01/19 09:37 IMPRESSION: Normal bilateral cervical carotid and vertebral arteries. Brain MRI 01/01/19 11:14 IMPRESSION: No MRI evidence for acute infarct Minimal increased T2 signal abnormalities within the white matter which could represent old small vessel ischemic changes versus Virchow-Junior spaces Cervical Spine MRI 01/01/19 11:14 IMPRESSION: Loss of normal cervical lordosis likely due to muscular spasm Multilevel spondylosis as above multilevel disc osteophyte complexes uncinate hypertrophy, facet spondylosis with multilevel mild central canal and foraminal stenoses Code Visit Inpatient E&M: [id number] [facility] Hosp L3
[2019-01-02] MEDS: Gabapentin 300 MG Capsule 600 MG PO (21:31)
[2019-01-03 02:59] VITALS: PULSE 72
[2019-01-03 03:30] VITALS: BP 131/76; PULSE 62; RESP 16; TEMP 36.4; O2SAT 95
[2019-01-03 06:56] LABS: Magnesium 2.4 mg/dL (1.6-2.6)
[2019-01-03 06:59] LABS: Anion Gap 10 (5-15); BUN 19 mg/dL (7-18); BUN/Creat Ratio 30.1 RATIO (10-20); Calcium,Total 8.2 mg/dL (8.5-10.1); Chloride 107 mmol/L (98-107); Creatinine, Serum 0.63 mg/dL (0.55-1.02); EST Glomerular Filtration Rate 101 mL/min (>60); Est Glom Filt Rate - Afr Amer 123 mL/min (>60); Estimated Creatinine Clearance 73.23 ml/min; Glucose 271 mg/dL (74-106); Potassium 4.3 mmol/L (3.5-5.1); Sodium Level 139 mmol/L (136-145)
[2019-01-03 07:00] VITALS: PULSE 67
[2019-01-03 07:00] LABS: Hemoglobin A1c 6.8 % (4.2-6.3)
[2019-01-03 08:28] VITALS: O2SAT 96
[2019-01-03 09:00] VITALS: BP 127/68; PULSE 79; RESP 16; TEMP 36.4; O2SAT 97
[2019-01-03] MEDS: Lisinopril 20 MG Tablet PO (09:16)
[2019-01-03] MEDS: APIXABAN 2.5 MG TABLET PO (09:16)
[2019-01-03] MEDS: Famotidine 20 MG Tablet PO (09:16)
[2019-01-03] MEDS: Iron Polysaccharide Complex 150 MG CAPSULE PO (09:16)
[2019-01-03] MEDS: Citalopram 20 MG Tablet PO (09:16)
--- NOTE | 2019-01-03 09:56 | PCM.DC ---
- Discharge Diagnoses Current Active Problems: Current Active and Chronic Problems (Last Updated 10/06/18 @ 15:11 by Felicita Jacob) Headache (Acute) You will use the following diet at home:: Calorie/Carbohydrate Controlled (specify 1200, 1400, etc) - 2000 C, Cardiac Your liquids should be the consistency of: Regular/Thin Discharge Activity: May Not Drive Call your doctor if you observe: Fever of 101 or Higher, Numbness or Tingling, Shortness of breath, Swelling in the ankles, Prolonged hiccoughing, Increased palpitations (irregular heartbeat) Additional Instructions: Follow up ortho spine surgeon for cervical neuropathy/spinal stenosis with [facility] [place] or [facility] [place] Allergies/Adverse Reactions: Allergies codeine Adverse Reaction (Verified 01/01/19 09:22) Other enoxaparin sodium [From Lovenox] Adverse Reaction (Verified 01/01/19 09:22) Other Medications to take at Discharge Citalopram [Celexa] 20 mg PO DAILY 03/29/16 Gabapentin [Neurontin] 300 mg PO DAILY 03/29/16 Lisinopril [Zestril] 20 mg PO DAILY 03/29/16 Cholecalciferol (Vitamin D3) [Vitamin D3] 2,000 unit PO QMONTH 11/01/16 Iron Polysaccharide Complex [Ferrex 150] 150 mg PO DAILY 11/01/16 Metformin HCl [Glucophage] 500 mg PO BIDCM 11/01/16 Gabapentin [Neurontin] 600 mg PO QHS 01/01/19 Cyclobenzaprine [Flexeril] 10 mg PO TID #30 tablet 01/03/19 Divalproex Sodium [Depakote ER] 1,000 mg PO DAILY #30 tab.er.24h 01/03/19 MethylPREDNISolone DosePak [Medrol DosePak] 4 mg PO UD #1 box 01/03/19 The following prescriptions were given: Divalproex Sodium [Depakote ER] 1,000 mg PO DAILY #30 tab.er.24h MethylPREDNISolone DosePak [Medrol DosePak] 4 mg PO UD #1 box Cyclobenzaprine [Flexeril] 10 mg PO TID #30 tablet Primary Care Physician: Tani Diez Chi, MD [Primary Care Provider] - Please follow up with your Primary Care Physician in: in 2 week Test Results: Test results from this visit will be discussed in further detail at your follow-up appointment, if applicable. Please Follow Up With: Mark Anthony Cool MD When: in 2 week
--- NOTE | 2019-01-03 10:00 | DCINST_ITS ---
- Discharge Diagnoses Current Active Problems: Current Active and Chronic Problems (Last Updated 10/06/18 @ 15:11 by Felicita Jacob) Headache (Acute) You will use the following diet at home:: Calorie/Carbohydrate Controlled (specify 1200, 1400, etc) - 2000 C, Cardiac Your liquids should be the consistency of: Regular/Thin Discharge Activity: May Not Drive Call your doctor if you observe: Fever of 101 or Higher, Numbness or Tingling, Shortness of breath, Swelling in the ankles, Prolonged hiccoughing, Increased palpitations (irregular heartbeat) Additional Instructions: Follow up ortho spine surgeon for cervical neuropathy/spinal stenosis with [facility] [place] or [place] [facility] Allergies/Adverse Reactions: Allergies codeine Adverse Reaction (Verified 01/01/19 09:22) Other enoxaparin sodium [From Lovenox] Adverse Reaction (Verified 01/01/19 09:22) Other Medications to take at Discharge Citalopram [Celexa] 20 mg PO DAILY 03/29/16 Gabapentin [Neurontin] 300 mg PO DAILY 03/29/16 Lisinopril [Zestril] 20 mg PO DAILY 03/29/16 Cholecalciferol (Vitamin D3) [Vitamin D3] 2,000 unit PO QMONTH 11/01/16 Iron Polysaccharide Complex [Ferrex 150] 150 mg PO DAILY 11/01/16 Metformin HCl [Glucophage] 500 mg PO BIDCM 11/01/16 Gabapentin [Neurontin] 600 mg PO QHS 01/01/19 Cyclobenzaprine [Flexeril] 10 mg PO TID #30 tablet 01/03/19 Divalproex Sodium [Depakote ER] 1,000 mg PO DAILY #30 tab.er.24h 01/03/19 MethylPREDNISolone DosePak [Medrol DosePak] 4 mg PO UD #1 box 01/03/19 The following prescriptions were given: Divalproex Sodium [Depakote ER] 1,000 mg PO DAILY #30 tab.er.24h MethylPREDNISolone DosePak [Medrol DosePak] 4 mg PO UD #1 box Cyclobenzaprine [Flexeril] 10 mg PO TID #30 tablet Primary Care Physician: Tani Diez Chi, MD [Primary Care Provider] - Please follow up with your Primary Care Physician in: in 2 week Test Results: Test results from this visit will be discussed in further detail at your follow- up appointment, if applicable. Please Follow Up With: Mark Anthony Cool MD When: in 2 week
--- NOTE | 2019-01-03 10:06 | PCM.DC.SUM ---
Discharge Date and Diagnosis Date of Admission: 01/01/19 Date of Discharge: 01/03/19 - Primary Discharge Diagnosis Active and Suspected Problems (Last Updated 10/06/18 @ 15:11 by Felicita Jacob) Headache (Acute) - Secondary Discharge Diagnosis Chronic Problems (Last Updated 10/06/18 @ 15:11 by Felicita Jacob) Diabetes mellitus type 2 in obese (Chronic) Hypertension (Chronic) Degenerative joint disease (Chronic) Status post total knee replacement, bilateral (Chronic) Rheumatoid arthritis (Chronic) Hospital Course and Treatment Summary of Care Provided: [] The patient is a 63 year old F morbid obesity BMI 71, diabetes mellitus type 2 [facility] sudden onset of neck pain with severe headache. She woke up today at 6:30 AM with severe headache along with left side of head and neck. She also has left upper extremity numbness which started yesterday but got worse today. She has chronic weakness of bilateral hand muscle secondary to carpal tunnel syndrome. Denies previous history of headache, neck pain or migraine or seizure disorder. Denies temporal headache. Denies lower extremity weakness. Normal lower urinary tract symptoms/constipation. No abnormal involuntary movements She has chronic rheumatologic disease including severe degenerative joint disease status post bilateral TKR, rheumatoid arthritis. Initial imaging studies in the ER including CT brain, CTA head and neck was unremarkable. Basic blood work is remarkable CRP 3.38, ESR 21, BUN 24. 1. Severe neck pain and headache with left upper extremity paresthesias secondary to multilevel cervical spondylosis with C4-C5 central canal stenosis and mild cord compression: Patient is being admitted in PCU. Discussed with neurologist Dr. Garcia. MRI brain and C-spine ordered. IV fluid normal saline. Neurologist consult reviewed. Patient was started on IV valproic in ER and neurologist continued it. CRP 3.38. MRI C-spine shows multilevel spondylosis with multilevel disc osteophyte complexes, facet spondylosis with multilevel mild central canal and foraminal stenoses. There is mild cord compression with mild central canal stenosis in C4-5 with increased T2 signal in the posterior disc margin. Patient on Decadron 4 mg every 6 hourly, Depakote 500 mg IV every 8 hourly and Toradol for pain. Discussed with the neurologist Dr. Cool. He reviewed the MRI C-spine. He suggested Depakote ER 1000 mg once daily and Medrol Dosepak. Patient is discharged on same. Patient was advised to take Flexeril 10 mg 3 times daily as needed for muscle spasm. Advised Tylenol or [id number] Motrin as needed for pain but was made aware of adverse effect on kidneys, heart and GI system. She understands well. Patient assisted to follow-up with orthospine, Dr. Trimble will be [facility] orthospine surgeon in in [place] or [address] at [place]. Follow-up with neurologist Dr. Cool. Follow-up outpatient physical therapy. 2. Diabetes mellitus type 2 with diabetic neuropathy: Accu-Chek before meals and at bedtime and cover with NovoLog sliding scale. A1c 6.8. Blood sugar well controlled. 3. Rheumatology conditions: Bilateral diffuse degenerative joint disease, rheumatoid arthritis, hypovitaminosis D: Home medication reconciliation done. PT and OT ordered. 4. Morbid obesity status post gastric bypass surgery 5. DVT prophylaxis: The patient gets open wound after Lovenox injection. Avoid injectable heparin products.started On Eliquis 2.5 mg twice daily. Discharge medication reconciliation done. Discharge follow-up instructions completed. Discharge process discussed with the patient and all questions were answered to patient's satisfaction.. Total time spent, exact 35 minutes on discharge meds reconciliation, examination, review of imaging and blood test and discussion with the patient on follow-up instructions. Clinical Impression(s) from Imaging Studies Brain CT 01/01/19 09:37 IMPRESSION: Normal unenhanced CT scan of the brain. Head CTA 01/01/19 09:37 IMPRESSION: Normal [place] of [place] without a demonstrated aneurysm or hemodynamically significant stenosis. Neck CTA 01/01/19 09:37 IMPRESSION: Normal bilateral cervical carotid and vertebral arteries. Brain MRI 01/01/19 11:14 IMPRESSION: No MRI evidence for acute infarct Minimal increased T2 signal abnormalities within the white matter which could represent old small vessel ischemic changes versus Virchow-Junior spaces Cervical Spine MRI 01/01/19 11:14 IMPRESSION: Loss of normal cervical lordosis likely due to muscular spasm Multilevel spondylosis as above multilevel disc osteophyte complexes uncinate hypertrophy, facet spondylosis with multilevel mild central canal and foraminal stenoses Subjective: Seen and examined. Patient headache and neck pain is much better. Pain scale 2/10 intensity. Vital signs are stable. Patient felt transient tingling sensation of left upper extremity from neck to finger. No weakness or changes strength of left upper extremity. Discussed with the neurologist Dr. Cool. Objective: General: Alert, Oriented x3, Cooperative HEENT: Atraumatic, PERRLA, EOMI, Normocephalic Neck: Supple, No JVD, Negative Carotid Bruits Lungs: Clear to auscultation, No rhonchi, No wheeze, No rales,- Air entry is diminished in bilateral lung bases. Cardiovascular: Regular rate, Regular Rhythm, Normal S1, Normal S2, No murmurs Abdomen: Bowel Sounds Present, Soft, Non Tender, Non-Distended Extremities: No cyanosis, Capillary Refill Less than 3 Seconds, Edema Skin: No rashes, No breakdown Musculoskeletal: No Tenderness to Palpation of Joints or Extremities, Arthritic Changes Neurological: Cranial nerves II-XII grossly intact, chronic mild weakness in both hands. chronic mild weakness of knee and hip joint secondary to chronic degenerative joint disease and deconditioning. Left upper extremity cervical neuropathy paresthesia Psych/Mental Status: Normal Affect, Appropriate - Physical Exam Vital Signs Temp Pulse Resp BP Pulse Ox 97.5 F L 79 16 127/68 H 97 01/03/19 09:00 01/03/19 09:00 01/03/19 09:00 01/03/19 09:00 01/03/19 09:00 Oxygen Delivery Method Room Air Weight: 397 lb 11.422 oz Body Mass Index (BMI) 72.7 Intake and Output for Last 24 Hours 01/01/19 01/02/19 01/03/19 23:59 23:59 23:59 Intake Total 550 / 550 2516 / 2516 2014 Balance 550 / 550 2515 / 6 2014 Laboratory Tests Past 24 Hrs 01/03/19 01/03/19 01/03/19 05:20 05:20 05:20 Sodium 139 Potassium 4.3 Chloride 107 Carbon Dioxide 22.0 Anion Gap 10 BUN 19 H Creatinine 0.63 Estim Creat Clear Calc 73.23 Est GFR (MDRD) Af Amer 123 Est GFR (MDRD) Non-Af 101 BUN/Creatinine Ratio 30.1 H Glucose 271 H Hemoglobin A1c 6.8 H Calcium 8.2 L Magnesium 2.4 Discharge Activity: May Not Drive Call your doctor if you observe: Fever of 101 or Higher, Numbness or Tingling, Shortness of breath, Swelling in the ankles, Prolonged hiccoughing, Increased palpitations (irregular heartbeat) Home Medications: Medications to take at Discharge Citalopram [Celexa] 20 mg PO DAILY 03/29/16 Gabapentin [Neurontin] 300 mg PO DAILY 03/29/16 Lisinopril [Zestril] 20 mg PO DAILY 03/29/16 Cholecalciferol (Vitamin D3) [Vitamin D3] 2,000 unit PO QMONTH 11/01/16 Iron Polysaccharide Complex [Ferrex 150] 150 mg PO DAILY 11/01/16 Metformin HCl [Glucophage] 500 mg PO BIDCM 11/01/16 Gabapentin [Neurontin] 600 mg PO QHS 01/01/19 Cyclobenzaprine [Flexeril] 10 mg PO TID #30 tablet 01/03/19 Divalproex Sodium [Depakote ER] 1,000 mg PO DAILY #30 tab.er.24h 01/03/19 MethylPREDNISolone DosePak [Medrol DosePak] 4 mg PO UD #1 box 01/03/19 Following Prescrptions Were Given to Patient: Divalproex Sodium [Depakote ER] 1,000 mg PO DAILY #30 tab.er.24h MethylPREDNISolone DosePak [Medrol DosePak] 4 mg PO UD #1 box Cyclobenzaprine [Flexeril] 10 mg PO TID #30 tablet Primary Care Physician: Tani Diez Chi, MD [Primary Care Provider] - Please follow up with your Primary Care Physician in: in 2 week Please Follow Up With: Mark Anthony Cool MD When: in 2 week Medical Necessity - Tobacco Use Smoking Status: Never smoker Tobacco Use: Non-smoker Meaningful Use Info Meaningful Use Diagnoses (Choose all that apply): None applicable Code Visit Inpatient E&M: 71000 Disch Hosp
== END 2019-01-03 10:05 | disposition home or self-care (01) ==
LOC: ED 09:53 → PCU 18:17
PROVIDERS: Hospitalist; Psychiatry & Neurology Neurology; Admitting Provider Internal Medicine; Emergency Provider Emergency Medicine; Family Provider Family Medicine Geriatric Medicine; PCP Family Medicine Geriatric Medicine; Visit Provider Internal Medicine
DX: R51 Headache (principal); R20.2 Paresthesia of skin; M54.2 Cervicalgia; M06.9 Rheumatoid arthritis, unspecified; E66.01 Morbid (severe) obesity due to excess calories; I10 Essential (primary) hypertension; M79.7 Fibromyalgia; M19.90 Unspecified osteoarthritis, unspecified site; F41.9 Anxiety disorder, unspecified; D64.9 Anemia, unspecified; Z98.84 Bariatric surgery status; Z79.899 Other long term (current) drug therapy; Z68.45 Body mass index [BMI] 70 or greater, adult; Z71.3 Dietary counseling and surveillance; Z79.84 Long term (current) use of oral hypoglycemic drugs; E11.40 Type 2 diabetes mellitus with diabetic neuropathy, unspecified
CPT/HCPCS: 36415; 70450; 70496; 70498; 70551; 72141; 80048; 80076; 82962; 83036; 83735; 85025; 85652; 86140; 96361; 96365; 96366; 96375; 96376; 97161; 97165; 97530; 97802; 99218; 99282; J7030; Q9967; A4216; G0378

== ENCOUNTER 2019-02-08 07:30 | Outpatient (RCR) | payer OTHER, SELFPAY ==
[2019-01-01 13:16] VITALS: BMI 72.7
--- NOTE | 2019-01-25 09:16 | HP.PTEVAL ---
Patient's Visit Information MICHAEL SOUZA is a 63 year old F referred to Physical Therapy by Tani Diez MD with a diagnosis of C/S DDD. Date of Evaluation: 01/25/19 Physical Therapist: Justo Burger DPT, OCS, CSCS - Visit Plan Frequency: 3x /Week Duration: 4-6 Weeks Plan: 2-3x/week for 2-6 weeks for... 1. c/s ret eventually ext bias HEP aadn progression of forces to tolerance. PROM, manual traction to tolerance. 2. Postural correction and strengthening. 3. es and MH to L c/s /scap area if needed. - Subjective Findings: Had sever LOPEZ a couple weeks ago and went to ER and L arm went numb. Pain started at work a few weeks ago. Two days in hospital had scans of head and neck and found pinched nerve in neck. Not a problem previously. No treatment at hospital except rule out stroke. Sent to Dr. Diez who sent for therapy and pain management for possible injections. Surgery is not in her wheel house. Will see pain doctor for pain management as she has had FM for long time. H/O two knee replacements and R one did not help alot. Uses cane for distance walking for pain and balance issues. No falls lately. LOPEZ is gone. Neck pain centrally and to L shoulder and pain shoots posterior shoulder and hard to lift arm. Numbness in arm is intermittent without reason. Pain in neck is constant. sitting is better, up and moving is worse. Putting hand behind her sometimes helps. Sleeps needing advil and is on neurontin and sleeps 4-5 hours for FM. 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 Worse after work. Hobbies include camping but not lately. basic ADLs she is managing but hard to put bra on...takes extra long. - Pain Neck paina dn L shoulder Pain Intensity (Out of 10): 5 Pain Intensity Range: 3, 8 - Objective Sits with forward head and hesitant to move neck, likes to keep L arm behind her for pain. UE AROM WFL but painful L except elevation which is 90, R is full and painfree. c/s aROM ext 40 and painful R c/s, SB R>L limited and painful 12 degreees., c/s ROtation 40 B and painful R, c/s retraction painful. reflexes 1/3 bi and tri. Sensation WNL to gross light touch. Strength 3/5 with lots of pain. + c/s compression L. Tender to touch full c/s and shoulders(FM) moderately and consistent with FM. repeated motion: protrusion increase pain from 4/10 to 7/10. Unable to lift aarm or look up. c/s retraction : better movement, no change to pain. More comfortable. Able to move arm again. - VAT as best as can test today with ROM. Walks I and trasnfers I. - Goals Goal 1:: C/S aROM 60 rotations and ext without pain. Goal Time Frame: 4-6 Weeks Goal 2:: Patient feel 75% better on neck/shoulder pain to 2/10 at worst adn raise L arm OH without pain Goal Time Frame: 4-6 Weeks Goal 3:: Sleep without waking at night Goal Time Frame: 4-6 Weeks Goal 4:: I approp HEP to minimize future problems. Goal Time Frame: 4-6 Weeks - Rehabilitation Potential Physical Therapy Diagnosis: C/S DDD and neck pain Rehabilitation Potential: Fair - Anticipated Interventions Patient/Client Instruction: Educate patient on: Condition, Plan of Care For the Purpose of:: To decrease pain, To increase ROM Therapeutic Exercise to Include: Strength training, Flexibilty training, Passive ROM, Active ROM, [place] Exercises For the Purpose of:: To decrease pain, To increase ROM, To improve muscle performance and motor function, To improve ability of physical actions for home/community/work/leisure, To increase flexibility/ROM Manual Therapy Techniques to Include: Mobilization Comment: manual traction For the Purpose of:: To decrease pain, To increase ROM TENS: Yes Thermo therapy (hot pack): Yes For the Purpose of:: To decrease pain Thank you for the opportunity to evaluate your patient. For Medicare and Medicare HMO plans, please review the plan of care and approve it. It will need to be FAXED BACK to us at [phone] for Medicare purposes. For Medicare only, by signing this I certify the plan of care. Please let me know if there are questions or concerns regarding this plan of care. Physician Signature: Date:
--- NOTE | 2019-04-27 18:39 | HP.PTDCNRP_ITS ---
HP - Discharge Summary (1) - Patient Information MICHAEL SOUZA was seen in my office for initial evaluation on 01/25/19. The following Plan of Care was established for this patient: Initial Frequency: 3x /Week Initial Duration: 4-6 Weeks - Anticipated Interventions Patient/Client Instruction: Educate patient on: Condition, Plan of Care For the Purpose of:: To decrease pain, To increase ROM Therapeutic Exercise to Include: Strength training, Flexibilty training, Passive ROM, Active ROM, Ashok Exercises For the Purpose of:: To decrease pain, To increase ROM, To improve muscle performance and motor function, To improve ability of physical actions for home/community/work/leisure, To increase flexibility/ROM Manual Therapy Techniques to Include: Mobilization Comment: manual traction For the Purpose of:: To decrease pain, To increase ROM TENS: Yes Thermo therapy (hot pack): Yes For the Purpose of:: To decrease pain This patient was last seen in our office 02/08/19. Pertinent comments regarding their Physical therapy will appear below: Pt seen for 7 visits and was doing better. [facility] injection but did not call to set up or attend appointm ents. iw ill discontinue due to nonattendance as it has been over two months. At this point I will be discontinuing this patient from physical therapy. I would be happy to see this patient again in the future if found appropriate by the physician. Thank you! Justo Burger, DPT, OCS, CSCS
== END 2019-02-08 19:00 | disposition home or self-care (01) ==
LOC: PT 07:30
PROVIDERS: Family Provider Family Medicine Geriatric Medicine; PCP Family Medicine Geriatric Medicine; Referring Provider Family Medicine Geriatric Medicine; Visit Provider Family Medicine Geriatric Medicine
DX: M48.02 Spinal stenosis, cervical region (principal)
CPT/HCPCS: 97014; 97110; 97140; 97162; 97530; G0283

== ENCOUNTER → 2019-04-26 | Outpatient (CLI) | payer OTHER, SELFPAY ==
[2019-01-01 13:16] VITALS: BMI 72.7
--- NOTE | 2019-04-26 15:45 | RAD_ITS ---
STUDY: X-RAY - LUMBAR SPINE REASON FOR EXAM: Female, 63 years old. Pain TECHNIQUE: 4 view(s) of the lumbar spine were obtained. COMPARISON: None FINDINGS: There is minor degree of scoliosis. There is a normal alignment of the vertebrae. There are mild expected related changes. Normal vertebral bodies and endplates. Normal disc space heights. The soft tissue structures are unremarkable. Surgical clips are present in the left upper quadrant. RAD/Lumbar Spine 2 or 3 Views IMPRESSION: Unremarkable age-appropriate lumbar spine. Electronically Signed: Talia Fontana, at 17:36 EDT Tel , Service support ,
[2019-04-26 16:06] LABS: Absolute Lymphocyte Count 2.45 X10^3/ul (0.83-4.51); Absolute Neutrophil Count 4.6 X10^3/uL (2.0-7.7); Basophil# 0.04 X10^3/uL; Basophil% 0.5 % (0-1); Eosinophil# 0.09 X10^3/uL; Eosinophils% 1.2 % (0-5); Hematocrit 41.4 % (37-47); Lymphocyte # 2.45 X10^3/ul (4.0); Lymphocyte % 31.6 % (19-41); Mean Corp Hgb Conc 31.4 g/gl (32-36); Mean Corpuscular Hgb 27.4 pg (27.0-32.0); Mean Corpuscular Volume 87.3 fL (81-99); Mean Platelet Vol. 9.5 fl (6.2-12.0); Monocyte# 0.57 X10^3/uL; Monocyte% 7.3 % (0-10); Neutrophil # 4.59 X10^3/uL (2.7-7.7); Neutrophil % 59.1 % (47-70); Platelet Count 367 K/mm3 (150-450); RBC Distribution Width CV 16.4 % (11.6-14.6); RBC Distribution Width SD 52.8 fl (35.1-43.9); Red Blood Count 4.74 M/mm3 (4.2-5.4); White Blood Count 7.8 K/mm3 (4.4-11.0)
[2019-04-26 16:10] LABS: POSITIVE COUNT NO; POSITIVE DIFFERENTIAL NO; POSITIVE MORPHOLOGY NO
[2019-04-26 16:18] LABS: Vitamin D,25 Hydroxy 23.3 ng/mL (29.95-100.01)
[2019-04-26 16:21] LABS: AST(SGOT) 13 U/L (15-37); Alanine Aminotransfer ALT/SGPT 26 U/L (13-56); Albumin, Serum 3.5 g/dL (3.2-5.0); Alkaline Phosphatase 80 U/L (45-117); Anion Gap 5 (5-15); BUN 18 mg/dL (7-18); BUN/Creat Ratio 25.3 RATIO (10-20); Calcium,Total 8.4 mg/dL (8.5-10.1); Chloride 105 mmol/L (98-107); Creatinine, Serum 0.71 mg/dL (0.55-1.02); EST Glomerular Filtration Rate 88 mL/min (>60); Est Glom Filt Rate - Afr Amer 107 mL/min (>60); Globulin 3.6 g/dL (2.2-4.2); Glucose 119 mg/dL (74-106); Potassium 4.4 mmol/L (3.5-5.1); Protein, Total 7.1 g/dL (6.4-8.2); Sodium Level 136 mmol/L (136-145); Thyroid Stim Hormone (TSH) 2.18 uIU/mL (0.358-3.74)
== END | disposition home or self-care (01) ==
PROVIDERS: Family Provider Family Medicine Geriatric Medicine; PCP Family Medicine Geriatric Medicine; Referring Provider Anesthesiology Pain Medicine; Visit Provider Anesthesiology Pain Medicine
DX: M54.9 Dorsalgia, unspecified (principal); E11.9 Type 2 diabetes mellitus without complications; E55.9 Vitamin D deficiency, unspecified
CPT/HCPCS: 36415; 72100; 80053; 82306; 84443; 85025

== ENCOUNTER 2019-05-26 16:00 | Outpatient (RCR) | payer OTHER, SELFPAY ==
[2019-01-01 13:16] VITALS: BMI 72.7
--- NOTE | 2019-05-11 16:33 | HP.PTEVAL_ITS ---
Patient's Visit Information MICHAEL SOUZA is a 63 year old F referred to Physical Therapy by Denise Esqueda MD with a diagnosis of BACK AND LEG PAIN. Date of Evaluation: 05/11/19 Physical Therapist: Roberto Dunn, PT, Cert MDT, OCS - Visit Plan Frequency: 1-2x /Week Duration: 4 Weeks Plan: PT INTERVENTIONS PROVIDED HEP TODAY,WILL PROGRESS TO AQUATIC PROGRAM TO GRADED DLS, LUMBAR ROM,STRENGTHENING BLE,POSTURAL EX'S, - Subjective Findings: This 63 y/o female presents to physical therapy with back and leg pain for many years. Patient pain loctated right L-S ,/SI radiates to lateral decscribed as a sharp pain. Patient seen pain management and tried injections didn's help. Did x-rays and pain MEDS. Patient aggravating factors walking ,standing,getting in out of car,walking reguires use of cane,sitting,bending,lif ting. Alleviating factors none. Patient pain affects sleeping. Bowel/bladder -. Denies parathesia/tingling-. Coughing/sneezing-. Patient symptoms affects job demands,ADL'S ,housework tasks. Patient symptoms affects QOL . VOCATION: [employer]. SOCIAL: - Pain Right Back Pain Intensity (Out of 10): 7 Pain Intensity Range: 10 - Objective POSTURE: mild foward posture. GAIT: ambulates with cane antalgic slow sergey. NEURO: denies parathesia/tingling,L3-4,L4-5,L5-S1 1/3. PALAPTION: tender SI/LS and right lateral hip. SYMMTRIES: assymtry pelvis. MMT: quads/hams 3+/5 right ,left 4-/5,hip flexion 3/5 right ,left 3+/5,ankle 4/5. LUMBAR ROM: flexion mod loss,extension severe loss,side glides mod loss. - Special Tests L/S Slump test left side: Negative L/S Slump test right side: Negative L/S Left Straight Leg Raise: Positive L/S Right Straight Leg Raise: Negative Lumbar Standing: Flexion - Mechanical Response: No effect Lumbar Standing: Flexion - Symptoms During Testing: Increases Lumbar Standing: Flexion - Symptoms After Testing: Worse Lumbar Standing: Extension - Mechanical Response: No effect Lumbar Standing: Extension - Symptoms During Testing: Increases Lumbar Standing: Extension - Symptoms After Testing: Worse Lumbar Standing: Right Side Glides - Mechanical Response: No effect Lumbar Standing: Right Side [place] - Symptoms During Testing: No effect Lumbar Standing: Right Side [place] - Symptoms After Testing: No effect Lumbar Standing: Left Side [place] - Mechanical Response: No effect Lumbar Standing: Left Side [place] - Symptoms During Testing: Increases Lumbar Standing: Left Side [place] - Symptoms After Testing: Worse - Goals Goal 1:: Independant with HEP and Aquatic PT Goal Time Frame: 2-4 Weeks Goal 2:: Patient to decrease pain by 50%to improve function with walking and standing. Goal Time Frame: 2-4 Weeks Goal 3:: Patieny to increase strength quads/hams /hip 4-/5 to improve function Goal Time Frame: 2-4 Weeks Goal 4:: Patient to improve back owestry score by 5 points or greater to improve function. Goal Time Frame: 4-6 Weeks Goal 5:: Patient to improve lumbar ROM for function of recovery. Goal Time Frame: 2-4 Weeks - Rehabilitation Potential Physical Therapy Diagnosis: This patient has left L-S pain with radicular symptoms possibel due to derranagement vs lateral stenosis with pain during gait,standing,bending ,sitting afects ADL'S and job demnads Rehabilitation Potential: Good - Anticipated Interventions Patient/Client Instruction: Educate patient on: Condition, Plan of Care For the Purpose of:: To decrease pain, To increase ROM, To improve muscle performance and motor function, To improve ability to perform ADL's, To increase tolerance to activity/condition/position, To improve ability of physical actions for home/community/work/leisure, To improve health of tissue, To decrease soft tissue restriction, To improve ability to perform tasks related to life management Therapeutic Exercise to Include: Strength training, Body mechanics, Postural training, Flexibilty training, In an aquatic setting, Dynamic Lumbar Stabilization For the Purpose of:: To decrease pain, To increase ROM, To improve muscle performance and motor function, To increase tolerance to activity/c ondition/position, To improve ability of physical actions for home/community/work/leisure, To improve health of tissue, To decrease soft tissue restriction, To increase flexibility/ROM, To reduce risk of recurrence, To improve ability to perform tasks related to life management Thank you for the opportunity to evaluate your patient. For Medicare and Medicare HMO plans, please review the plan of care and approve it. It will need to be FAXED BACK to us at [phone] for Medicare purposes. For Medicare only, by signing this I certify the plan of care. Please let me know if there are questions or concerns regarding this plan of care. Physician Signature: Date:
--- NOTE | 2019-08-18 14:13 | HP.PTDCNRP_ITS ---
HP - Discharge Summary (1) - Patient Information MICHAEL SOUZA was seen in my office for initial evaluation on 05/11/19. The following Plan of Care was established for this patient: Initial Frequency: 1-2x /Week Initial Duration: 4 Weeks - Anticipated Interventions Patient/Client Instruction: Educate patient on: Condition, Plan of Care For the Purpose of:: To decrease pain, To increase ROM, To improve muscle perfo rmance and motor function, To improve ability to perform ADL's, To increase tolerance to activity/condition/position, To improve ability of physical actions for home/community/work/leisure, To improve health of tissue, To decrease soft tissue restriction, To improve ability to perform tasks related to life management Therapeutic Exercise to Include: Strength training, Body mechanics, Postural training, Flexibilty training, In an aquatic setting, Dynamic Lumbar Stabilization For the Purpose of:: To decrease pain, To increase ROM, To improve muscle performance and motor function, To increase tolerance to activity/condition/position, To improve ability of physical actions for home/community/work/leisure, To improve health of tissue, To decrease soft tissue restriction, To increase flexibility/ROM, To reduce risk of recurrence, To improve ability to perform tasks related to life management This patient was last seen in our office 05/26/19. Pertinent comments regarding their Physical therapy will appear below: Patient seen for back and leg pain with Aquatic PT for LB to establish HEP. At this point I will be discontinuing this patient from physical therapy. I would be happy to see this patient again in the future if found appropriate by the physician. Thank you! Roberto Dunn, PT, Cert MDT, OCS
== END 2019-05-26 19:00 | disposition home or self-care (01) ==
LOC: PT 16:00
PROVIDERS: Family Provider Family Medicine Geriatric Medicine; PCP Family Medicine Geriatric Medicine; Referring Provider Anesthesiology Pain Medicine; Visit Provider Anesthesiology Pain Medicine
DX: M54.9 Dorsalgia, unspecified (principal); M79.606 Pain in leg, unspecified
CPT/HCPCS: 97110; 97113; 97162

== ENCOUNTER → 2019-06-24 | Outpatient (CLI) | payer OTHER, SELFPAY ==
[2019-01-01 13:16] VITALS: BMI 72.7
[2019-06-24 18:03] LABS: Absolute Lymphocyte Count 2.25 X10^3/uL (0.83-4.51); Absolute Neutrophil Count 3.7 X10^3/uL (2.0-7.7); Basophil# 0.05 X10^3/uL; Basophil% 0.8 % (0-1); Eosinophils% 1.5 % (0-5); Hematocrit 41.2 % (37-47); Hemoglobin 12.8 g/dL (12.0-15.0); Lymphocyte # 2.25 X10^3/ul (4.0); Lymphocyte % 34.5 % (19-41); Mean Corp Hgb Conc 31.1 g/dL (32-36); Mean Corpuscular Hgb 26.5 pg (27.0-32.0); Mean Corpuscular Volume 85.3 fL (81-99); Mean Platelet Vol. 9.5 fl (6.2-12.0); Monocyte# 0.42 X10^3/uL; Monocyte% 6.4 % (0-10); NRBC Flagged by Analyzer 0 % (0-5); Neutrophil # 3.69 X10^3/uL (2.7-7.7); Neutrophil % 56.5 % (47-70); Platelet Count 327 K/mm3 (150-450); RBC Distribution Width SD 43.2 fl (35.1-43.9); Red Blood Count 4.83 M/mm3 (4.2-5.4); White Blood Count 6.5 K/mm3 (4.4-11.0)
[2019-06-24 18:22] LABS: D-Dimer Quantitative (DVT/PE) 1.49 FEU/ug/m (0.27-0.49)
[2019-06-24 18:24] LABS: Anion Gap 4 (5-15); BUN 20 mg/dL (7-18); BUN/Creat Ratio 28.9 RATIO (10-20); Calcium,Total 8.9 mg/dL (8.5-10.1); Chloride 104 mmol/L (98-107); Creatinine, Serum 0.69 mg/dL (0.55-1.02); EST Glomerular Filtration Rate 91 mL/min (>60); Est Glom Filt Rate - Afr Amer 111 mL/min (>60); Glucose 155 mg/dL (74-106); Potassium 4.1 mmol/L (3.5-5.1); Sodium Level 136 mmol/L (136-145)
== END | disposition home or self-care (01) ==
LOC: POLAB3 17:26
PROVIDERS: Family Provider Family Medicine Geriatric Medicine; PCP Family Medicine Geriatric Medicine; Visit Provider Family Medicine Geriatric Medicine
DX: L03.119 Cellulitis of unspecified part of limb (principal); R06.02 Shortness of breath
CPT/HCPCS: 36415; 80048; 85025; 85379

== ENCOUNTER → 2019-06-25 | Outpatient (CLI) | payer OTHER, SELFPAY ==
[2019-01-01 13:16] VITALS: BMI 72.7
--- NOTE | 2019-06-25 14:41 | VDLE_ITS ---
Reason For Study: localized edema RIGHT LEFT GSV is normal. GSV is normal. CFV is compressible, spontaneous, phasic, CFV is compressible, spontaneous, phasic, competent and demonstrates normal competent, and demonstrates normal augmentation. augmentation. FV is compressible, spontaneous, phasic, FV is compressible, spontaneous, phasic, competent and demonstrates normal competent and demonstrates normal augmentation. augmentation. POP V is compressible, spontaneous, phasic, POP V is compressible, spontaneous, phasic, competent and demonstrates normal competent and demonstrates normal augmentation. augmentation. T/P Trunk is compressible. T/P Trunk is compressible. PTV is compressible. PTV is compressible. Procedure Exam performed in department. The study was technically difficult. PT is morbidly obese > 400 lbs. Peroneal veins were not visualized. A preliminary report was called and/or faxed to Dr. Diez @ 3:15 pm. Interpretation Summary Deep veins of the lower extremities are bilaterally patent and compressible segmentally. There is no evidence of deep vein thrombosis on either side. Valvular competence appears intact within the proximal deep venous systems bilaterally. The great saphenous veins appear bilaterally patent and compressible segmentally. The peroneal veins were not visualized on either side. Ordering Physician: Tani Diez Referring Physician: Tani Diez Chi Performed By: Joann Morales, RDCS, RVT
== END | disposition home or self-care (01) ==
LOC: CVS 14:38
PROVIDERS: Family Provider Family Medicine Geriatric Medicine; PCP Family Medicine Geriatric Medicine; Referring Provider Family Medicine Geriatric Medicine; Visit Provider Family Medicine Geriatric Medicine
DX: R60.0 Localized edema (principal)
CPT/HCPCS: 93970

== ENCOUNTER → 2019-08-16 15:48 | Outpatient (CLI) | payer OTHER, SELFPAY ==
[2019-01-01 13:16] VITALS: BMI 72.7
[2019-08-16 18:41] LABS: Amphetamine Urine VISTA NEGATIVE (<1000 ng/mL); Barbiturate Urine VISTA NEGATIVE (< 200 ng/mL); Benzodiazepine Urine VISTA NEGATIVE (< 200 ng/mL); Cocaine Urine VISTA NEGATIVE (< 300 ng/mL); Ecstacy Urine VISTA NEGATIVE (< 500 ng/mL); Methadone Urine VISTA NEGATIVE (< 300 ng/mL); PCP Urine VISTA NEGATIVE (< 25 ng/mL); THC Urine VISTA NEGATIVE (< 50 ng/mL); Vista UDS pH Range 6
== END ==
PROVIDERS: Family Provider Family Medicine Geriatric Medicine; PCP Family Medicine Geriatric Medicine; Referring Provider Anesthesiology Pain Medicine; Visit Provider Anesthesiology Pain Medicine
DX: F11.20 Opioid dependence, uncomplicated (principal)
CPT/HCPCS: 36415; 80307

== ENCOUNTER → 2019-08-24 14:48 | Outpatient (CLI) | payer OTHER, SELFPAY ==
[2019-01-01 13:16] VITALS: BMI 72.7
--- NOTE | 2019-08-24 14:51 | VDLE_ITS ---
Reason For Study: Localized edema RIGHT LEFT GSV is normal. GSV is normal. CFV is compressible, spontaneous, phasic, CFV is compressible, spontaneous, phasic, competent and demonstrates normal competent, and demonstrates normal augmentation. augmentation. FV is compressible, spontaneous, phasic, FV is compressible, spontaneous, phasic, competent and demonstrates normal competent and demonstrates normal augmentation. augmentation. POP V is compressible, spontaneous, phasic, POP V is compressible, spontaneous, phasic, competent and demonstrates normal competent and demonstrates normal augmentation. augmentation. T/P Trunk is compressible. T/P Trunk is compressible. PTV is compressible. PTV is compressible. RT PerV is compressible. Unable to visualize Peroneal veins. Procedure Exam performed in department. Technically difficult study due to pt body habitus. A preliminary report was called and/or faxed to Rg. Interpretation Summary Deep veins of the lower extremities are bilaterally patent and compressible segmentally. There is no evidence of deep vein thrombosis on either side. Valvular competence appears intact within the proximal deep venous systems bilaterally. The great saphenous veins appear bilaterally patent and compressible segmentally. The left peroneal veins were not visualized. Ordering Physician: Tani Diez Referring Physician: Tani Diez Chi Performed By: Sanam Wilson RVT
[2019-08-24 16:54] LABS: Absolute Lymphocyte Count 1.58 X10^3/uL (0.83-4.51); Absolute Neutrophil Count 6.6 X10^3/uL (2.0-7.7); Basophil# 0.04 X10^3/uL; Basophil% 0.5 % (0-1); Eosinophil# 0.05 X10^3/uL; Eosinophils% 0.6 % (0-5); Hematocrit 43.7 % (37-47); Hemoglobin 12.8 g/dL (12.0-15.0); Lymphocyte # 1.58 X10^3/ul (4.0); Lymphocyte % 17.9 % (19-41); Mean Corp Hgb Conc 29.3 g/dL (32-36); Mean Corpuscular Hgb 25.5 pg (27.0-32.0); Mean Corpuscular Volume 87.2 fL (81-99); Mean Platelet Vol. 10.1 fl (6.2-12.0); Monocyte# 0.59 X10^3/uL; Monocyte% 6.7 % (0-10); NRBC Flagged by Analyzer 0 % (0-5); Neutrophil # 6.55 X10^3/uL (2.7-7.7); Platelet Count 294 K/mm3 (150-450); RBC Distribution Width CV 16.7 % (11.6-14.6); RBC Distribution Width SD 53.4 fl (35.1-43.9); Red Blood Count 5.01 M/mm3 (4.2-5.4); White Blood Count 8.8 K/mm3 (4.4-11.0)
[2019-08-24 17:23] LABS: Ferritin 9 ng/mL (8-252); Iron 32 ug/dL (50-170); Iron Binding Capacity,Total 367 ug/dL (250-450)
== END ==
PROVIDERS: Family Provider Family Medicine Geriatric Medicine; PCP Family Medicine Geriatric Medicine; Referring Provider Family Medicine Geriatric Medicine; Visit Provider Family Medicine Geriatric Medicine
DX: R60.0 Localized edema (principal); D64.9 Anemia, unspecified
CPT/HCPCS: 36415; 82728; 82746; 83540; 83550; 85025; 93970

== ENCOUNTER → 2019-09-02 17:07 | Outpatient (CLI) | payer OTHER, SELFPAY ==
[2019-01-01 13:16] VITALS: BMI 72.7
[2019-09-02 17:55] LABS: Absolute Lymphocyte Count 2.76 X10^3/uL (0.83-4.51); Absolute Neutrophil Count 5.2 X10^3/uL (2.0-7.7); Basophil# 0.06 X10^3/uL; Basophil% 0.7 % (0-1); Eosinophil# 0.16 X10^3/uL; Eosinophils% 1.8 % (0-5); Hematocrit 42.1 % (37-47); Hemoglobin 12.7 g/dL (12.0-15.0); Lymphocyte # 2.76 X10^3/ul (4.0); Lymphocyte % 31.3 % (19-41); Mean Corp Hgb Conc 30.2 g/dL (32-36); Mean Platelet Vol. 9.6 fl (6.2-12.0); Monocyte# 0.63 X10^3/uL; Monocyte% 7.1 % (0-10); NRBC Flagged by Analyzer 0 % (0-5); Neutrophil # 5.19 X10^3/uL (2.7-7.7); Neutrophil % 58.8 % (47-70); Platelet Count 386 K/mm3 (150-450); RBC Distribution Width CV 16.6 % (11.6-14.6); RBC Distribution Width SD 49.6 fl (35.1-43.9); Red Blood Count 5.07 M/mm3 (4.2-5.4); White Blood Count 8.8 K/mm3 (4.4-11.0)
[2019-09-02 18:06] LABS: Erythrocyte Sedimentation Rate 18 mm/hr (0-30)
[2019-09-02 18:27] LABS: Anion Gap 8 (5-15); BUN 18 mg/dL (7-18); BUN/Creat Ratio 25.7 RATIO (10-20); CRP 5.28 mg/L (0.0-3.0); Chloride 98 mmol/L (98-107); EST Glomerular Filtration Rate 90 mL/min (>60); Est Glom Filt Rate - Afr Amer 109 mL/min (>60); Glucose 145 mg/dL (74-106); Potassium 4.5 mmol/L (3.5-5.1); Sodium Level 134 mmol/L (136-145)
== END ==
PROVIDERS: Family Provider Family Medicine Geriatric Medicine; PCP Family Medicine Geriatric Medicine; Visit Provider Family Medicine Geriatric Medicine
DX: M79.609 Pain in unspecified limb (principal)
CPT/HCPCS: 36415; 80048; 85025; 85652; 86140

== ENCOUNTER → 2019-09-13 10:52 | Outpatient (CLI) | payer OTHER, SELFPAY ==
[2019-01-01 13:16] VITALS: BMI 72.7
--- NOTE | 2019-09-13 10:54 | ART_ITS ---
Reason For Study: PAD Procedure A bilateral lower extremity continuous wave Doppler with analog waveform analysis and ankle brachial indexes. Left Segmental Pressures Left brachial= 115mmHg. Left posterior tibial artery = 149mmHg. Left dorsalis pedis artery = 142mmHg. Left digit = 131 mmHg. The left posterior tibial artery waveforms are triphasic. The left dorsalis pedis waveforms are biphasic. Right Segmental Pressures Right brachial= 125mmHg. Right posterior tibial artery = 131mmHg. Right dorsalis pedis artery = 122mmHg. Right digit = 120 mmHg. The right dorsalis pedis waveforms are triphasic. The right posterior tibial artery waveforms are triphasic. Indices The right ankle brachial index by the dorsalis pedis is .98. The right ankle brachial index by the posterior tibial artery is 1.05. The right digital-brachial index is .96. The left ankle brachial index by the posterior tibial artery is 1.19. The left ankle brachial index by the dorsalis pedis is 1.14. The left digital-brachial index is 1.05. Interpretation Summary Triphasic Doppler waveforms are noted at ankle level on the right. Triphasic and biphasic Doppler waveforms are noted at ankle level on the left. Resting ankle-brachial indices are normal bilaterally. Digital-brachial indices are normal bilaterally. There is no evidence of significant arterial occlusive disease in the lower extremities bilaterally. Ordering Physician: Tani Diez Referring Physician: Tani Diez Chi Performed By: TJ KYLE [facility]
== END ==
PROVIDERS: Family Provider Family Medicine Geriatric Medicine; PCP Family Medicine Geriatric Medicine; Referring Provider Family Medicine Geriatric Medicine; Visit Provider Family Medicine Geriatric Medicine
DX: I73.9 Peripheral vascular disease, unspecified (principal); R60.9 Edema, unspecified; M79.609 Pain in unspecified limb
CPT/HCPCS: 93922

== ENCOUNTER 2019-09-14 07:12 | Outpatient (RCR) | payer OTHER, SELFPAY ==
[2019-01-01 13:16] VITALS: BMI 72.7
--- NOTE | 2019-09-14 08:54 | HP.OTEVAL ---
Patient's Visit Information MICHAEL SOUZA is a 63 year old F, referred to Occupational Therapy by Tani Diez MD, with a diagnosis of LE edema. Date of Evaluation: 09/14/19 Occupational Therapist: GENE Marie/Heather, CHT - Subjective Subjective: This 63 year old female was seen for OT eval with dx of BLE edema. Pt states she started to have swelling in her LE about three months ago and was dx with cellulitis in her right LE. Pt states she was wrapping her LE but was unable to juan ramon. due to her dx of fibromyalgia. pt is employed at the [employer] in [place] and states she only sits about 60 min prior to getting up and moving around. Pt would like to know how to mtg her LE swelling so she can continue with her job and home mtg tasks. other medical hx includes Anemia,anxietyy, arthritis, DMII, Fibromyalgia, HTN, Morbid obesity - Pain BLE 6 Pain Intensity Range: 3, 6 - Lymphedema (Circumferential Measure) Mid-foot: right 27cm left 27cm Ankle: right 29cm left 26cm Lower calf: right 26cm left 26cm Largest calf: right 54cm left 53cm Below knee: right 74cm left 53cm Lower Exremity Comments: pt demo with small ankle and Lower calf regions comparative to calf - Sensation Sensation Comments: denies - Lower Limb Functional Index Lower Extremity Functional Score: 12 - Goals Demonstrate a 20% reduction in edema by d/c: Yes Demonstrate adequate knowledge of self-massage by 2nd week: Yes Demonstrate adequate knowledge skin care/prec by 2nd week: Yes Demonstrate adequate knowledge therapeutic exercises by d/c: Yes Select approp compression garment w/donning/care/wear by d/c: Yes Voice need to replace compression garment every 4-6mo by dc: Yes - Rehabilitation General Assessment: Pt demo with LE edema- and would benefit from therapy services 2-3 visits to ed. pt on edema mtg, use of compression garments or compression alternatives, skin care, ex, and self manual lymph drainage. Today therapist ed.pt on compression garments 20-30mmHg for daily use, compression alternatives, and light compression while sleeping, skin care, and ex to stimulate circulation. pt was receptive and agree to POC. Pt did take information with her today to [facility]. Rehabilitation Potential: Questionable - Anticipated Interventions Anticipated Interventions: Education re Life-long lymphedema Management, Education re Self-Bandaging Techniques, Education re Skin Care and Precautions, Education re Self Massage Techniques, Education re Correct Donning Tech,Care&Wearing Sched Comp Garments, Caregiver Training, Home Program - Visit Plan TEXT: Thank you for the opportunity to evaluate your patient. For Medicare and Medicare HMO plans, please review the plan of care and approve it. It will need to be FAXED BACK to us at [phone] for Medicare purposes. Please let me know if there are questions or concerns regarding this plan of care. Physician Signature: Date:
--- NOTE | 2019-12-20 18:22 | HP.OTDCNRP_ITS ---
HP - Discharge Summary - Patient Information MICHAEL SOUZA was seen in my office for initial evaluation on 09/14/19. The following Plan of Care was established for this patient: - Anticipated Interventions Anticipated Interventions: Education re Life-long lymphedema Management, Ed ucation re Self-Bandaging Techniques, Education re Skin Care and Precautions, Education re Self Massage Techniques, Education re Correct Donning Tech,Care&Wearing Sched Comp Garments, Caregiver Training, Home Program This patient was last seen in our office 09/14/19. Pertinent comments regarding their Occupational therapy will appear below: pt seen for OT eval only. At this point I will be discontinuing this patient from occupational therapy. I would be happy to see this patient again in the future if found appropriate by the physician. Thank you! Nati Stanley, OTR/L, CHT
== END 2019-09-14 19:00 | disposition home or self-care (01) ==
LOC: OT 07:12
PROVIDERS: Family Provider Family Medicine Geriatric Medicine; PCP Family Medicine Geriatric Medicine; Referring Provider Family Medicine Geriatric Medicine; Visit Provider Family Medicine Geriatric Medicine
DX: R60.0 Localized edema (principal)
CPT/HCPCS: 97110; 97166; 97530

== ENCOUNTER → 2019-09-27 11:45 | Outpatient (CLI) | payer OTHER, SELFPAY ==
[2019-01-01 13:16] VITALS: BMI 72.7
[2019-09-27 12:23] LABS: Absolute Lymphocyte Count 1.99 X10^3/uL (0.83-4.51); Absolute Neutrophil Count 5.6 X10^3/uL (2.0-7.7); Basophil# 0.05 X10^3/uL; Basophil% 0.6 % (0-1); Eosinophil# 0.13 X10^3/uL; Eosinophils% 1.6 % (0-5); Hematocrit 40.3 % (37-47); Hemoglobin 12.2 g/dL (12.0-15.0); Lymphocyte # 1.99 X10^3/ul (4.0); Lymphocyte % 23.9 % (19-41); Mean Corp Hgb Conc 30.3 g/dL (32-36); Mean Corpuscular Hgb 24.9 pg (27.0-32.0); Mean Corpuscular Volume 82.2 fL (81-99); Monocyte# 0.57 X10^3/uL; Monocyte% 6.9 % (0-10); NRBC Flagged by Analyzer 0 % (0-5); Neutrophil # 5.56 X10^3/uL (2.7-7.7); Neutrophil % 66.8 % (47-70); Platelet Count 381 K/mm3 (150-450); RBC Distribution Width CV 16.2 % (11.6-14.6); RBC Distribution Width SD 48.5 fl (35.1-43.9); White Blood Count 8.3 K/mm3 (4.4-11.0)
[2019-09-27 13:01] LABS: AST(SGOT) 11 U/L (15-37); Alanine Aminotransfer ALT/SGPT 18 U/L (13-56); Albumin, Serum 3.7 g/dL (3.2-5.0); Alkaline Phosphatase 79 U/L (45-117); Anion Gap 8 (5-15); BUN 17 mg/dL (7-18); BUN/Creat Ratio 21.9 RATIO (10-20); Calcium,Total 8.6 mg/dL (8.5-10.1); Chloride 105 mmol/L (98-107); Creatinine, Serum 0.78 mg/dL (0.55-1.02); EST Glomerular Filtration Rate 80 mL/min (>60); Est Glom Filt Rate - Afr Amer 96 mL/min (>60); Globulin 3.7 g/dL (2.2-4.2); Glucose 183 mg/dL (74-106); Potassium 4.3 mmol/L (3.5-5.1); Protein, Total 7.4 g/dL (6.4-8.2); Sodium Level 137 mmol/L (136-145); Thyroid Stim Hormone (TSH) 2.04 uIU/mL (0.358-3.74)
== END ==
PROVIDERS: Family Provider Family Medicine Geriatric Medicine; PCP Family Medicine Geriatric Medicine; Visit Provider Family Medicine Geriatric Medicine
DX: E11.9 Type 2 diabetes mellitus without complications (principal); E55.9 Vitamin D deficiency, unspecified; I10 Essential (primary) hypertension
CPT/HCPCS: 36415; 80053; 82306; 84443; 85025

== ENCOUNTER → 2020-01-17 17:56 | Outpatient (CLI) | payer OTHER, SELFPAY ==
[2019-01-01 13:16] VITALS: BMI 72.7
== END ==
PROVIDERS: PCP Family Medicine Geriatric Medicine; Referring Provider Family Medicine Geriatric Medicine; Visit Provider Family Medicine Geriatric Medicine
DX: J11.1 Influenza due to unidentified influenza virus with other respiratory manifestations (principal)
CPT/HCPCS: 87804

== ENCOUNTER → 2020-01-19 08:08 | Outpatient (CLI) | payer OTHER, SELFPAY ==
[2019-01-01 13:16] VITALS: BMI 72.7
== END ==
PROVIDERS: PCP Family Medicine Geriatric Medicine; Referring Provider Family Medicine Geriatric Medicine; Visit Provider Family Medicine Geriatric Medicine
DX: J11.1 Influenza due to unidentified influenza virus with other respiratory manifestations (principal)
CPT/HCPCS: 87807

== ENCOUNTER → 2020-04-05 14:50 | Outpatient (CLI) | payer OTHER, SELFPAY ==
[2019-01-01 13:16] VITALS: BMI 72.7
[2020-04-05 15:46] LABS: Absolute Lymphocyte Count 2.57 X10^3/uL (0.83-4.51); Absolute Neutrophil Count 3.9 X10^3/uL (2.0-7.7); Basophil# 0.04 X10^3/uL; Basophil% 0.6 % (0-1); Eosinophil# 0.07 X10^3/uL; Hematocrit 37.6 % (37-47); Hemoglobin 11.2 g/dL (12.0-15.0); Lymphocyte # 2.57 X10^3/ul (4.0); Lymphocyte % 36.4 % (19-41); Mean Corp Hgb Conc 29.8 g/dL (32-36); Mean Corpuscular Hgb 23.6 pg (27.0-32.0); Mean Corpuscular Volume 79.3 fL (81-99); Mean Platelet Vol. 9.2 fl (6.2-12.0); Monocyte% 7.1 % (0-10); NRBC Flagged by Analyzer 0 % (0-5); Neutrophil # 3.88 X10^3/uL (2.7-7.7); Neutrophil % 54.8 % (47-70); Platelet Count 385 K/mm3 (150-450); RBC Distribution Width CV 15.8 % (11.6-14.6); Red Blood Count 4.74 M/mm3 (4.2-5.4); White Blood Count 7.1 K/mm3 (4.4-11.0)
[2020-04-05 16:44] LABS: AST(SGOT) 15 U/L (15-37); Alanine Aminotransfer ALT/SGPT 27 U/L (13-56); Albumin, Serum 3.8 g/dL (3.2-5.0); Alkaline Phosphatase 67 U/L (45-117); Anion Gap 9 (5-15); BUN 27 mg/dL (7-18); BUN/Creat Ratio 35.2 RATIO (10-20); Calcium,Total 8.9 mg/dL (8.5-10.1); Chloride 101 mmol/L (98-107); Creatinine, Serum 0.77 mg/dL (0.55-1.02); EST Glomerular Filtration Rate 81 mL/min (>60); Est Glom Filt Rate - Afr Amer 98 mL/min (>60); Ferritin 6 ng/mL (8-252); Globulin 3.8 g/dL (2.2-4.2); Glucose 154 mg/dL (74-106); Iron 27 ug/dL (50-170); Iron Binding Capacity,Total 449 ug/dL (250-450); Potassium 4.7 mmol/L (3.5-5.1); Protein, Total 7.6 g/dL (6.4-8.2); Sodium Level 135 mmol/L (136-145); Thyroid Stim Hormone (TSH) 1.57 uIU/mL (0.358-3.74)
== END ==
LOC: POLAB3 14:51
PROVIDERS: PCP Family Medicine Geriatric Medicine; Visit Provider Family Medicine Geriatric Medicine
DX: E11.9 Type 2 diabetes mellitus without complications (principal); E55.9 Vitamin D deficiency, unspecified; I10 Essential (primary) hypertension
CPT/HCPCS: 36415; 80053; 82306; 82728; 83540; 83550; 84443; 85025

== ENCOUNTER → 2020-05-19 14:48 | Outpatient (CLI) | payer OTHER, SELFPAY ==
[2019-01-01 13:16] VITALS: BMI 72.7
[2020-05-19 15:00] VITALS: BP 163/72; PULSE 87; RESP 16; TEMP 35.6; O2SAT 87; BMI 70.8
[2020-05-19] MEDS: 0.9% NaCl Peripheral Flush Adult/Peds IV (15:26)
[2020-05-19] MEDS: 0.9% NaCl IVPB Med Flush (250 mL) 15 ML IV (15:26)
[2020-05-19 16:10] VITALS: BP 122/62; PULSE 80; RESP 18; O2SAT 96
== END ==
LOC: MEDOUTP 14:53
PROVIDERS: PCP Family Medicine Geriatric Medicine; Referring Provider Family Medicine Geriatric Medicine; Visit Provider Family Medicine Geriatric Medicine
DX: D50.9 Iron deficiency anemia, unspecified (principal)
CPT/HCPCS: 96365; J1756; J7050; A4216

== ENCOUNTER → 2020-05-22 14:43 | Outpatient (CLI) | payer OTHER, SELFPAY ==
[2019-01-01 13:16] VITALS: BMI 72.7
[2020-05-19 15:00] VITALS: BMI 70.8
[2020-05-22 15:00] VITALS: BP 126/66; PULSE 78; RESP 16; TEMP 36.2; O2SAT 95; BMI 70.8
[2020-05-22] MEDS: 0.9% NaCl IVPB Med Flush (250 mL) 15 ML IV (15:00)
[2020-05-22] MEDS: 0.9% NaCl Peripheral Flush Adult/Peds IV (15:12)
[2020-05-22 15:39] VITALS: BP 131/67; PULSE 77; RESP 16
== END ==
LOC: MEDOUTP 14:44
PROVIDERS: PCP Family Medicine Geriatric Medicine; Referring Provider Family Medicine Geriatric Medicine; Visit Provider Family Medicine Geriatric Medicine
DX: D50.9 Iron deficiency anemia, unspecified (principal)
CPT/HCPCS: 96365; J1756; J7050; A4216

== ENCOUNTER → 2020-05-24 | Outpatient (CLI) | payer OTHER, SELFPAY ==
[2019-01-01 13:16] VITALS: BMI 72.7
[2020-05-22 15:00] VITALS: BMI 70.8
[2020-05-24] MEDS: 0.9% NaCl IVPB Med Flush (250 mL) 15 ML IV (14:01)
[2020-05-24] MEDS: 0.9% NaCl Peripheral Flush Adult/Peds IV (14:01)
[2020-05-24 14:02] VITALS: BP 124/84; PULSE 100; RESP 16; TEMP 35.8; BMI 70.8
[2020-05-24 14:25] VITALS: BP 106/68; PULSE 137; RESP 18; O2SAT 98
== END | disposition home or self-care (01) ==
LOC: MEDOUTP 12:43
PROVIDERS: PCP Family Medicine Geriatric Medicine; Referring Provider Family Medicine Geriatric Medicine; Visit Provider Family Medicine Geriatric Medicine
DX: D50.9 Iron deficiency anemia, unspecified (principal)
CPT/HCPCS: 96365; J1756; J7050; A4216

== ENCOUNTER → 2020-05-26 14:42 | Outpatient (CLI) | payer OTHER, SELFPAY ==
[2019-01-01 13:16] VITALS: BMI 72.7
[2020-05-24 14:02] VITALS: BMI 70.8
[2020-05-26] MEDS: 0.9% NaCl Peripheral Flush Adult/Peds IV (15:02)
[2020-05-26] MEDS: 0.9% NaCl IVPB Med Flush (250 mL) 15 ML IV (15:02)
[2020-05-26 15:03] VITALS: BP 145/68; PULSE 87; RESP 18; TEMP 35.4; O2SAT 96; BMI 70.8
[2020-05-26 15:43] VITALS: BP 136/71; PULSE 81; RESP 16
== END ==
LOC: MEDOUTP 14:43
PROVIDERS: PCP Family Medicine Geriatric Medicine; Referring Provider Family Medicine Geriatric Medicine; Visit Provider Family Medicine Geriatric Medicine
DX: D50.9 Iron deficiency anemia, unspecified (principal)
CPT/HCPCS: 96365; J1756; J7050; A4216

== ENCOUNTER → 2020-05-29 14:42 | Outpatient (CLI) | payer OTHER, SELFPAY ==
[2019-01-01 13:16] VITALS: BMI 72.7
[2020-05-26 15:03] VITALS: BMI 70.8
[2020-05-29] MEDS: 0.9% NaCl Peripheral Flush Adult/Peds IV (15:08)
[2020-05-29] MEDS: 0.9% NaCl IVPB Med Flush (250 mL) 15 ML IV (15:08)
[2020-05-29 15:09] VITALS: BP 124/69; PULSE 71; RESP 16; TEMP 35.9; O2SAT 97; BMI 70.8
[2020-05-29 15:58] VITALS: BP 132/68; PULSE 76
== END ==
LOC: MEDOUTP 14:42
PROVIDERS: PCP Family Medicine Geriatric Medicine; Referring Provider Family Medicine Geriatric Medicine; Visit Provider Family Medicine Geriatric Medicine
DX: D50.9 Iron deficiency anemia, unspecified (principal)
CPT/HCPCS: 96365; J1756; J7050; A4216

== ENCOUNTER → 2020-06-08 07:52 | Outpatient (CLI) | payer OTHER, SELFPAY ==
[2019-01-01 13:16] VITALS: BMI 72.7
[2020-05-29 15:09] VITALS: BMI 70.8
[2020-06-08 08:45] LABS: Hematocrit 41.3 % (37-47); Hemoglobin 12.3 g/dL (12.0-15.0)
[2020-06-08 09:04] LABS: Iron 67 ug/dL (50-170)
== END ==
PROVIDERS: PCP Family Medicine Geriatric Medicine; Visit Provider Family Medicine Geriatric Medicine
DX: D50.9 Iron deficiency anemia, unspecified (principal)
CPT/HCPCS: 36415; 83540; 85014; 85018

== ENCOUNTER → 2020-07-03 14:53 | Outpatient (CLI) | payer OTHER, SELFPAY ==
[2020-05-29 15:09] VITALS: BMI 70.8
[2020-07-03 15:32] LABS: Absolute Lymphocyte Count 2.19 X10^3/uL (0.83-4.51); Absolute Neutrophil Count 4.3 X10^3/uL (2.0-7.7); Basophil# 0.03 X10^3/uL; Basophil% 0.4 % (0-1); Eosinophils% 1.4 % (0-5); Hematocrit 44.7 % (37-47); Lymphocyte # 2.19 X10^3/ul (4.0); Lymphocyte % 31.5 % (19-41); Mean Corp Hgb Conc 31.3 g/dL (32-36); Mean Corpuscular Hgb 27.3 pg (27.0-32.0); Mean Corpuscular Volume 87.3 fL (81-99); Mean Platelet Vol. 9.7 fl (6.2-12.0); Monocyte# 0.37 X10^3/uL; Monocyte% 5.3 % (0-10); NRBC Flagged by Analyzer 0 % (0-5); Neutrophil # 4.25 X10^3/uL (2.7-7.7); Neutrophil % 61.1 % (47-70); POSITIVE MORPHOLOGY YES; Platelet Count 305 K/mm3 (150-450); RBC Distribution Width CV 21.9 % (11.6-14.6); RBC Distribution Width SD 66.8 fl (35.1-43.9); Red Blood Count 5.12 M/mm3 (4.2-5.4)
[2020-07-03 15:35] LABS: Differential Indicated SCAN CRITERIA MET
[2020-07-03 15:58] LABS: Anion Gap 7 (5-15); BUN 17 mg/dL (7-18); BUN/Creat Ratio 24.9 RATIO (10-20); Calcium,Total 8.8 mg/dL (8.5-10.1); Chloride 104 mmol/L (98-107); Creatinine, Serum 0.68 mg/dL (0.55-1.02); EST Glomerular Filtration Rate 92 mL/min (>60); Est Glom Filt Rate - Afr Amer 112 mL/min (>60); Glucose 93 mg/dL (74-106); Potassium 4.1 mmol/L (3.5-5.1); Sodium Level 138 mmol/L (136-145)
[2020-07-03 21:15] LABS: Anisocytosis 1+; Platelet Estimate ADEQUATE (ADEQ); Red Cell Morphology N CHROM NORMAL (NORM C&C)
== END ==
LOC: POLAB3 14:53
PROVIDERS: PCP Family Medicine Geriatric Medicine; Visit Provider Family Medicine Geriatric Medicine
DX: R53.83 Other fatigue (principal)
CPT/HCPCS: 36415; 80048; 85025; 87040

== ENCOUNTER → 2020-07-04 17:45 | Outpatient (CLI) | payer OTHER, SELFPAY ==
[2020-05-29 15:09] VITALS: BMI 70.8
== END ==
PROVIDERS: PCP Family Medicine Geriatric Medicine; Referring Provider Family Medicine Geriatric Medicine; Visit Provider Family Medicine Geriatric Medicine
DX: R06.89 Other abnormalities of breathing (principal)
CPT/HCPCS: 87635; C9803; U0003

== ENCOUNTER 2020-07-07 13:49 | Emergency (ER) | payer OTHER, SELFPAY ==
[2020-05-29 15:09] VITALS: BMI 70.8
[2020-07-07 13:52] VITALS: BP 160/94; PULSE 98; RESP 22; TEMP 36.4; O2SAT 95; BMI 66.0
[2020-07-07 14:08] VITALS: BP 165/69; PULSE 97; RESP 17; TEMP 36.4; O2SAT 96
--- NOTE | 2020-07-07 14:10 | RAD_ITS ---
STUDY: X-RAY CHEST REASON FOR EXAM: Female, 64 years old. DYSPNEA/ SOB, HEADACHE TECHNIQUE: Frontal and lateral views COMPARISON: 10/29/2014. FINDINGS: The lungs are not fully expanded. There is no demonstrated pleural abnormality. Normal size heart. Normal mediastinum and sally. Normal visualized pulmonary arteries. Normal visualized aortic arch and descending thoracic aorta. Degenerative changes of the thoracic spine. Normal visualized ribs, clavicles, and shoulders. There is no demonstrated abnormality of the visualized soft tissue structures of the upper abdomen. RAD/Chest PA and Lateral IMPRESSION: Normal x-ray examination of the chest. Electronically Signed: Wan De Oliveira DO at 16:29 EDT Tel [phone], Service support ,
--- NOTE | 2020-07-07 14:10 | EKG12_ITS ---
Test Reason : Blood Pressure : / mmHG Vent. Rate : 089 BPM Atrial Rate : 089 BPM P-R Int : 172 ms QRS Dur : 084 ms QT Int : 370 ms P-R-T Axes : 047 020 041 degrees QTc Int : 450 ms Normal sinus rhythm Low voltage QRS Borderline ECG Confirmed by NILDA MIR, OSMEL ([id number]), video tape editor KAROLYN CAREY ([id number]) on 07/12/2020 10:13:15 AM Referred By: LEEANNE Confirmed By:OSMEL MUNGUIA MD
--- NOTE | 2020-07-07 14:13 | ED.VIS.DYS ---
History of Present Illness <Justo Broussard - Last Filed: 07/07/20 15:36> Informant: Patient Onset: Days - 5 days Activity at onset: Exertion, Light Activity, Rest Timing: Continuous Quality: Dyspnea on exertion Current Severity: Severe Maximum Severity: Severe Worsened by: Coughing Relieved by: Nothing Associated Symptoms: Cough, Rhinorrhea, Sore throat, Sweats. Negative for: Bloody Sputum, Chills, Clear sputum, Ear pain, Fever, Green sputum, Post-nasal drainage, White sputum, Yellow sputum Chest Pain: None Narrative: 64-year-old female presents to the emergency department with shortness of breath and a dry cough for 5 days. Saw her primary care who started her on prednisone did a coronavirus test which came back negative. She has not had a fever no chest pain no vomiting or diarrhea no leg pain or swelling and denies risk factors for pulmonary embolism. No history of asthma or COPD. No loss of taste or smell. No exposures to coronavirus. She denies any chest pain and she has not had sick contacts. PE Risk Factors: Negative for: Cancer, OCP + Smoking + > 35, Prior DVT or PE, Recent immobilization, Recent surgery, Recent travel Prior similar symptoms: No Recent Illness/Hospitalization: No <Sj Parrish - Last Filed: 07/07/20 16:24> Chief Complaint: Shortness of Breath Past Medical History <AartiJusto - Last Filed: 07/07/20 15:36> Prior records reviewed: Yes Past Medical History: - - Hypertension hyperlipidemia type 2 diabetes osteoarthritis Surgical History: - - Left wrist surgery Smoking Status: Never smoker <Sj Parrish - Last Filed: 07/07/20 16:24> - Allergies and Home Meds Allergies/Adverse Reactions: Allergies codeine Adverse Reaction (Verified 07/07/20 13:56) Other enoxaparin sodium [From Lovenox] Adverse Reaction (Verified 07/07/20 13:56) Other Primary Care Physician: Tani Diez Chi, MD [Primary Care Provider] - Review of Systems General: Reports: Chills, Malaise, Sweats. Denies: Fever Eyes: Denies: Visual changes - bilaterally, Blurred Vision - bilaterally, Diplopia ENT: Reports: Sore throat. Denies: Rhinorrhea Cardiovascular: Denies: Chest pain, Palpitations, Heart racing Respiratory: Reports: Dyspnea, Cough, Dyspnea on exertion. Denies: Sputum, Orthopnea, Paroxysmal nocturnal dyspnea Gastrointestinal: Denies: Abdominal pain, Nausea, Vomiting, Diarrhea, Melena, Hematochezia Genitourinary: Denies: Dysuria, Hematuria, Frequency Musculoskeletal: Denies: Myalgias, Arthralgias, Neck pain, Back pain, Swelling, Extremity Pain Skin: Denies: Rash, Wounds Neurological: Denies: Headache, Weakness, Numbness <Sj Parrish - Last Filed: 07/07/20 16:24> Physical Exam Vital Signs/Narrative: Vital Signs Temp Pulse Resp BP Pulse Ox 07/07/20 15:06 97.8 F 86 15 141/75 H 93 07/07/20 14:35 86 18 07/07/20 14:08 97.6 F L 97 17 165/69 H 96 07/07/20 13:52 97.6 F L 98 22 H 160/94 H 95 <Justo Broussard - Last Filed: 07/07/20 15:36> Vital Signs/Narrative: Vital Signs Temp Pulse Resp BP Pulse Ox 07/07/20 14:08 97.6 F L 97 17 165/69 H 96 07/07/20 13:52 97.6 F L 98 22 H 160/94 H 95 Inital Vital Signs reviewed: Yes General: Well nourished, Well developed, Obese, No Acute Distress Head: Normocephalic, Atraumatic Eyes: Perrl, EOMI ENT: Moist mucous membranes, No rhinorrhea Neck: Supple, Nontender Cardiovascular: Regular rhythm, No murmurs, Tachycardia Respiratory: No distress, CTA bilaterally, Chest nontender Abdomen: Soft, Nontender, Nondistended, Normal bowel sounds Back: Nontender, Normal Inspection Extremities: Nontender, No edema Skin: Normal color, No rash Neurological: Alert, Oriented x3, Cranial nerves II-XII grossly intact, Normal Strength, Normal Sensation Psychological: Normal affect, Normal Mood <Sj Parrish Last Filed: 07/07/20 16:24> Diagnostic/Tx/Re-eval - Medical Decision Making Patient was seen with me. I did a [id number] examination with the patient. Patient presents with shortness of breath and cough that has been getting worse over the past 5 days. Patient saw her primary care physician who did a COVID test which was negative. Patient was started on prednisone and has had minimal improvement. Patient denies any fevers or chills. Patient also admits to a headache. Patient states her headache is generalized. Patient denies any nausea or vomiting. Vital signs are stable. Patient is afebrile. Patient is in no acute distress. Cranial nerves II through XII are intact. There are no focal motor or sensory deficits noted. Heart was regular rate and rhythm. Lungs were diminished bilaterally. There is adequate respiratory effort. Abdomen is soft. Bowel sounds are normal. There is no tenderness. Cranial nerves II through XII are intact. There are no focal motor or sensory deficits noted. CT scan of the brain was obtained. There is no acute intracranial abnormality. Chest x-ray was obtained. On my interpretation, there is no acute cardiopulmonary process. CBC, basic metabolic profile, troponin, and BNP were obtained and were all essentially within normal limits. Patient was advised of her findings. Patient was instructed to continue her prednisone as previously prescribed. Patient was instructed to follow-up with her primary care physician in 3 to 5 days. Patient understood and was agreeable with the plan. All questions were answered. <Justo Broussard - Last Filed: 07/07/20 15:36> Chest X-Ray - ED: 2 View, Read by ED Physician, Read by Radiologist, No Acute Disease - Rhythm Strip Rhythm Strip: Sinus Rhythm Ectopy: None Treatment - Dyspnea: Oxygen, Albuterol Repeat Evaluation: Improved With Ambulation: Asymptomatic <Sj Parrish - Last Filed: 07/07/20 16:24> ED Disposition <Justo Broussard - Last Filed: 07/07/20 15:36> <Sj Parrsih - Last Filed: 07/07/20 16:24> - Plan for ED Patient: Disposition: Home or Assisted Living Diagnosis: Dyspnea, Headache, Degenerative joint disease, Hypertension, Rheumatoid arthritis Instructions: ED Dyspnea Referrals: Tani Diez Chi, MD [Primary Care Provider] - 3-5 Days
[2020-07-07] MEDS: Ipratropium/Albuterol Sulfate 3 ML AMPUL.NEB INHALATION (14:34)
[2020-07-07 14:35] VITALS: PULSE 86; RESP 18
[2020-07-07 14:37] LABS: Absolute Neutrophil Count 5.7 X10^3/uL (2.0-7.7); Basophil# 0.02 X10^3/uL; Basophil% 0.3 % (0-1); Differential Indicated SCAN CRITERIA MET; Hematocrit 45.1 % (37-47); Hemoglobin 14.1 g/dL (12.0-15.0); Lymphocyte % 18.8 % (19-41); Mean Corp Hgb Conc 31.3 g/dL (32-36); Mean Corpuscular Volume 86.4 fL (81-99); Mean Platelet Vol. 9.2 fl (6.2-12.0); Monocyte# 0.32 X10^3/uL; Monocyte% 4.3 % (0-10); NRBC Flagged by Analyzer 0 % (0-5); Neutrophil # 5.68 X10^3/uL (2.7-7.7); Neutrophil % 76.1 % (47-70); POSITIVE MORPHOLOGY YES; Platelet Count 314 K/mm3 (150-450); RBC Distribution Width CV 21.6 % (11.6-14.6); RBC Distribution Width SD 66.2 fl (35.1-43.9); Red Blood Count 5.22 M/mm3 (4.2-5.4); White Blood Count 7.5 K/mm3 (4.4-11.0)
--- NOTE | 2020-07-07 14:46 | CT_ITS ---
STUDY: CT BRAIN WITHOUT CONTRAST REASON FOR EXAM: Female, 64 years old. HEADACHE/WEAKNESS/SOB RADIATION DOSAGE (If Supplied By Facility): CTDIvol = ( 44.99 ) mGy, DLP = ( 812.98 ) mGycm TECHNIQUE: Transaxial CT imaging of the brain was performed without administration of intravenous contrast material. Individualized dose optimization techniques were used for this CT. COMPARISON: Comparison is made with prior study 01/01/2019. FINDINGS: Normal soft tissue structures. There is hyperostosis frontalis internus. There is mild cerebral atrophy with widening of the extra-axial spaces and ventricular dilatation. Normal white matter tracts of the cerebral hemispheres. Normal basal ganglia and thalami. Normal brainstem. Normal cerebellum. There is no intracranial hemorrhage. There are no findings of an acute ischemic infarction. Normal visualized paranasal sinuses. CT/Brain/Head without Contrast IMPRESSION: Chronic involutional changes of the brain. Electronically Signed: Ham Kaplan, at 15:28 EDT , Service support ,
[2020-07-07 15:00] LABS: Anion Gap 13 (5-15); BUN 20 mg/dL (7-18); BUN/Creat Ratio 23.8 RATIO (10-20); Calcium,Total 9.3 mg/dL (8.5-10.1); Chloride 107 mmol/L (98-107); Creatinine, Serum 0.84 mg/dL (0.55-1.02); EST Glomerular Filtration Rate 72 mL/min (>60); Est Glom Filt Rate - Afr Amer 88 mL/min (>60); Estimated Creatinine Clearance 61.68 ml/min; Glucose 149 mg/dL (74-106); Potassium 4.2 mmol/L (3.5-5.1); Sodium Level 141 mmol/L (136-145)
[2020-07-07 15:06] VITALS: BP 141/75; PULSE 86; RESP 15; TEMP 36.6; O2SAT 93
[2020-07-07 15:09] LABS: BNP,B-Type NATRIURETIC PEPTIDE 65.9 pg/mL (0-100)
[2020-07-07 15:12] LABS: Anisocytosis 1+; Hypochromasia RARE
[2020-07-07] MEDS: DiphenhydrAMINE 50 MG/ML Syringe 25 MG IV (15:53)
[2020-07-07] MEDS: Metoclopramide 10 MG/2 ML Vial IV (15:53)
[2020-07-07 16:49] VITALS: BP 136/68; PULSE 84; RESP 16; TEMP 36.4; O2SAT 93
== END 2020-07-07 16:53 | disposition home or self-care (01) ==
PROVIDERS: Emergency Provider Physician Assistant Medical; PCP Family Medicine Geriatric Medicine
DX: R06.00 Dyspnea, unspecified (principal); R51 Headache; I10 Essential (primary) hypertension; M06.9 Rheumatoid arthritis, unspecified; R61 Generalized hyperhidrosis; R05 Cough; J02.9 Acute pharyngitis, unspecified; E11.9 Type 2 diabetes mellitus without complications; E78.5 Hyperlipidemia, unspecified; E66.9 Obesity, unspecified; Z79.84 Long term (current) use of oral hypoglycemic drugs; Z79.899 Other long term (current) drug therapy
CPT/HCPCS: 70450; 71046; 80048; 83880; 84484; 85025; 93005; 96374; 96375; 99284; A4216

== ENCOUNTER → 2020-10-05 14:51 | Outpatient (CLI) | payer OTHER, SELFPAY ==
[2020-10-05 17:37] LABS: Absolute Lymphocyte Count 1.64 X10^3/uL (0.83-4.51); Absolute Neutrophil Count 4.3 X10^3/uL (2.0-7.7); Basophil# 0.04 X10^3/uL; Basophil% 0.6 % (0-1); Eosinophil# 0.13 X10^3/uL; Hematocrit 41.6 % (37-47); Hemoglobin 13.4 g/dL (12.0-15.0); Lymphocyte # 1.64 X10^3/ul (4.0); Lymphocyte % 25.3 % (19-41); Mean Corp Hgb Conc 32.2 g/dL (32-36); Mean Corpuscular Hgb 29.5 pg (27.0-32.0); Mean Corpuscular Volume 91.6 fL (81-99); Mean Platelet Vol. 10.6 fl (6.2-12.0); Monocyte# 0.39 X10^3/uL; NRBC Flagged by Analyzer 0 % (0-5); Neutrophil # 4.26 X10^3/uL (2.7-7.7); Neutrophil % 65.8 % (47-70); Platelet Count 342 K/mm3 (150-450); RBC Distribution Width SD 53.8 fl (35.1-43.9); Red Blood Count 4.54 M/mm3 (4.2-5.4); White Blood Count 6.5 K/mm3 (4.4-11.0)
[2020-10-05 18:01] LABS: ALB/GLOB Ratio 1.1 RATIO (0.9-2.4); AST(SGOT) 11 U/L (15-37); Alanine Aminotransfer ALT/SGPT 22 U/L (13-56); Albumin, Serum 3.4 g/dL (3.2-5.0); Alkaline Phosphatase 56 U/L (45-117); Anion Gap 7 (5-15); BUN 22 mg/dL (7-18); BUN/Creat Ratio 25.3 RATIO (10-20); Calcium,Total 8.7 mg/dL (8.5-10.1); Chloride 109 mmol/L (98-107); Creatinine, Serum 0.87 mg/dL (0.55-1.02); EST Glomerular Filtration Rate 70 mL/min (>60); Est Glom Filt Rate - Afr Amer 85 mL/min (>60); Ferritin 16 ng/mL (8-252); Globulin 3.1 g/dL (2.2-4.2); Glucose 144 mg/dL (74-106); Iron 37 ug/dL (50-170); Iron Binding Capacity,Total 347 ug/dL (250-450); PERCENT IRON SATURATION 10.7 % (15.0-55.0); Potassium 4.4 mmol/L (3.5-5.1); Protein, Total 6.5 g/dL (6.4-8.2); Sodium Level 140 mmol/L (136-145); Thyroid Stim Hormone (TSH) 0.85 uIU/mL (0.358-3.74)
== END ==
LOC: POLAB3 14:53
PROVIDERS: PCP Family Medicine Geriatric Medicine; Visit Provider Family Medicine Geriatric Medicine
DX: E11.9 Type 2 diabetes mellitus without complications (principal); E55.9 Vitamin D deficiency, unspecified; I10 Essential (primary) hypertension
CPT/HCPCS: 36415; 80053; 82306; 82728; 83540; 83550; 84443; 85025

== ENCOUNTER → 2020-11-08 16:24 | Outpatient (CLI) | payer OTHER, SELFPAY ==
[2020-11-08 17:52] LABS: Amphetamine Urine VISTA NEGATIVE (<1000 ng/mL); Barbiturate Urine VISTA NEGATIVE (< 200 ng/mL); Benzodiazepine Urine VISTA NEGATIVE (< 200 ng/mL); Cocaine Urine VISTA NEGATIVE (< 300 ng/mL); Ecstacy Urine VISTA NEGATIVE (< 500 ng/mL); Methadone Urine VISTA NEGATIVE (< 300 ng/mL); PCP Urine VISTA NEGATIVE (< 25 ng/mL); THC Urine VISTA NEGATIVE (< 50 ng/mL); Vista UDS pH Range 5
== END ==
PROVIDERS: PCP Family Medicine Geriatric Medicine; Referring Provider Anesthesiology Pain Medicine; Visit Provider Anesthesiology Pain Medicine
DX: F11.20 Opioid dependence, uncomplicated (principal)
CPT/HCPCS: 80307

== ENCOUNTER → 2021-04-05 15:17 | Outpatient (CLI) | payer OTHER, SELFPAY ==
[2021-04-05 17:24] LABS: Hematocrit 42.9 % (37-47); Hemoglobin 13.6 g/dL (12.0-15.0); Mean Corp Hgb Conc 31.7 g/dL (32-36); Mean Corpuscular Hgb 28.2 pg (27.0-32.0); Mean Corpuscular Volume 88.8 fL (81-99); Platelet Count 389 K/mm3 (150-450); RBC Distribution Width SD 49.4 fl (35.1-43.9); Red Blood Count 4.83 M/mm3 (4.2-5.4); White Blood Count 9.4 K/mm3 (4.4-11.0)
[2021-04-05 17:57] LABS: Vitamin D,25 Hydroxy 49.6 ng/mL
[2021-04-05 18:04] LABS: ALB/GLOB Ratio 1.1 RATIO (0.9-2.4); AST(SGOT) 14 U/L (15-37); Alanine Aminotransfer ALT/SGPT 26 U/L (13-56); Albumin, Serum 4.1 g/dL (3.2-5.0); Alkaline Phosphatase 64 U/L (45-117); Anion Gap 9 (5-15); BUN 25 mg/dL (7-18); BUN/Creat Ratio 36.4 RATIO (10-20); Calcium,Total 9.3 mg/dL (8.5-10.1); Chloride 102 mmol/L (98-107); Creatinine, Serum 0.69 mg/dL (0.55-1.02); EST Glomerular Filtration Rate 91 mL/min (>60); Est Glom Filt Rate - Afr Amer 111 mL/min (>60); Globulin 3.9 g/dL (2.2-4.2); Glucose 122 mg/dL (74-106); Potassium 4.8 mmol/L (3.5-5.1); Sodium Level 135 mmol/L (136-145)
[2021-04-06 11:06] LABS: Thyroid Stim Hormone (TSH) 1.38 uIU/mL (0.358-3.74)
== END ==
LOC: POLAB3 15:25
PROVIDERS: PCP Family Medicine Geriatric Medicine; Visit Provider Family Medicine Geriatric Medicine
DX: E11.9 Type 2 diabetes mellitus without complications (principal); E55.9 Vitamin D deficiency, unspecified; I10 Essential (primary) hypertension
CPT/HCPCS: 36415; 80053; 82306; 84443; 85027

== ENCOUNTER → 2021-08-01 06:16 | Outpatient (CLI) | payer OTHER, SELFPAY ==
--- NOTE | 2021-08-01 06:21 | RAD_ITS ---
STUDY: X-RAY - PELVIS AND RIGHT HIP REASON FOR EXAM: Female, 65 years old. Right hip pain for months. TECHNIQUE: 3 views of the pelvis and hip. COMPARISON: None. FINDINGS: There is a non-specific bowel gas pattern. Normal visualized soft tissue structures. Degenerative changes of visualized lumbar spine. Normal bilateral iliac wings, sacroiliac joints and visualized sacrum. Normal bilateral superior and inferior pubic rami. Normal pubic symphysis. Normal bilateral ischial tuberosities. There are osteoarthritic changes of the right femoral head with marginal osteophyte formation. There is cortical sclerosis with sub-cortical cyst formation of the right acetabulum. is severe articular joint space narrowing of the right hip. RAD/HIP, UNI W/ Pelvis 2-3 Views IMPRESSION: Marked degenerative changes of the right hip without acute fracture or dislocation. Electronically Signed: Thom Argueta DO at 16:17 EDT Tel [phone], Service support ,
== END ==
LOC: RAD 06:17
PROVIDERS: PCP Family Medicine Geriatric Medicine; Referring Provider Anesthesiology Pain Medicine; Visit Provider Anesthesiology Pain Medicine
DX: M25.551 Pain in right hip (principal)
CPT/HCPCS: 73502

== ENCOUNTER → 2021-10-10 14:15 | Outpatient (CLI) | payer OTHER, SELFPAY ==
[2021-10-10 17:12] LABS: Absolute Lymphocyte Count 2.39 X10^3/uL (0.83-4.51); Absolute Neutrophil Count 4.6 X10^3/uL (2.0-7.7); Basophil# 0.03 X10^3/uL; Basophil% 0.4 % (0-1); Eosinophil# 0.11 X10^3/uL; Eosinophils% 1.4 % (0-5); Hematocrit 38.2 % (37-47); Hemoglobin 11.7 g/dL (12.0-15.0); Lymphocyte # 2.39 X10^3/ul (0.83-4.51); Lymphocyte % 31.4 % (19-41); Mean Corp Hgb Conc 30.6 g/dL (32-36); Mean Corpuscular Hgb 26.5 pg (27.0-32.0); Mean Corpuscular Volume 86.4 fL (81-99); Mean Platelet Vol. 9.7 fl (6.2-12.0); Monocyte# 0.47 X10^3/uL; Monocyte% 6.2 % (0-10); NRBC Flagged by Analyzer 0 % (0-5); Neutrophil % 60.3 % (47-70); Platelet Count 386 K/mm3 (150-450); RBC Distribution Width CV 16.1 % (11.6-14.6); RBC Distribution Width SD 50.9 fl (35.1-43.9); Red Blood Count 4.42 M/mm3 (4.2-5.4); White Blood Count 7.6 K/mm3 (4.4-11.0)
[2021-10-10 17:32] LABS: Vitamin D,25 Hydroxy 38.2 ng/mL
[2021-10-10 17:39] LABS: AST(SGOT) 13 U/L (15-37); Alanine Aminotransfer ALT/SGPT 27 U/L (13-56); Albumin, Serum 3.9 g/dL (3.2-5.0); Alkaline Phosphatase 53 U/L (45-117); Anion Gap 9 (5-15); BUN 29 mg/dL (7-18); BUN/Creat Ratio 41.3 RATIO (10-20); Calcium,Total 9.2 mg/dL (8.5-10.1); Chloride 104 mmol/L (98-107); EST Glomerular Filtration Rate 89 mL/min (>60); Est Glom Filt Rate - Afr Amer 108 mL/min (>60); Globulin 3.8 g/dL (2.2-4.2); Glucose 142 mg/dL (74-106); Potassium 4.8 mmol/L (3.5-5.1); Protein, Total 7.7 g/dL (6.4-8.2); Sodium Level 138 mmol/L (136-145); Thyroid Stim Hormone (TSH) 0.88 uIU/mL (0.358-3.74)
== END ==
LOC: POLAB3 14:16
PROVIDERS: PCP Family Medicine Geriatric Medicine; Visit Provider Family Medicine Geriatric Medicine
DX: I10 Essential (primary) hypertension (principal); E55.9 Vitamin D deficiency, unspecified; E11.9 Type 2 diabetes mellitus without complications
CPT/HCPCS: 36415; 80053; 82306; 84443; 85025

== ENCOUNTER 2021-12-03 16:02 | Outpatient (CLI) | payer BC, MEDICARE, SELFPAY ==
[2021-12-03 17:32] LABS: Amphetamine Urine VISTA NEGATIVE (<1000 ng/mL); Barbiturate Urine VISTA NEGATIVE (< 200 ng/mL); Benzodiazepine Urine VISTA NEGATIVE (< 200 ng/mL); Cocaine Urine VISTA NEGATIVE (< 300 ng/mL); Ecstacy Urine VISTA NEGATIVE (< 500 ng/mL); Methadone Urine VISTA NEGATIVE (< 300 ng/mL); PCP Urine VISTA NEGATIVE (< 25 ng/mL); THC Urine VISTA NEGATIVE (< 50 ng/mL); Vista UDS pH Range 5
== END 2021-12-03 23:59 | disposition short-term general hospital (02) ==
LOC: LAB 16:07
PROVIDERS: PCP Family Medicine Geriatric Medicine; Visit Provider Anesthesiology Pain Medicine
DX: F11.20 Opioid dependence, uncomplicated (principal)
CPT/HCPCS: 80307

== ENCOUNTER → 2022-04-10 | Outpatient (CLI) | payer BC, SELFPAY ==
[2022-04-10 17:18] LABS: Absolute Lymphocyte Count 2.44 X10^3/uL (0.83-4.51); Absolute Neutrophil Count 5.1 X10^3/uL (2.0-7.7); Basophil# 0.04 X10^3/uL; Basophil% 0.5 % (0-1); Eosinophil# 0.11 X10^3/uL; Eosinophils% 1.3 % (0-5); Hematocrit 33.1 % (37-47); Hemoglobin 10.1 g/dL (12.0-15.0); Lymphocyte # 2.44 X10^3/ul (0.83-4.51); Lymphocyte % 29.6 % (19-41); Mean Corp Hgb Conc 30.5 g/dL (32-36); Mean Corpuscular Hgb 25.2 pg (27.0-32.0); Mean Corpuscular Volume 82.5 fL (81-99); Monocyte# 0.56 X10^3/uL; Monocyte% 6.8 % (0-10); NRBC Flagged by Analyzer 0 % (0-5); Neutrophil # 5.08 X10^3/uL (2.7-7.7); Neutrophil % 61.6 % (47-70); Platelet Count 382 K/mm3 (150-450); RBC Distribution Width CV 16.5 % (11.6-14.6); RBC Distribution Width SD 49.5 fl (35.1-43.9); Red Blood Count 4.01 M/mm3 (4.2-5.4); White Blood Count 8.3 K/mm3 (4.4-11.0)
[2022-04-10 17:34] LABS: Vitamin D,25 Hydroxy 38.1 ng/mL
[2022-04-10 17:42] LABS: ALB/GLOB Ratio 1.1 RATIO (0.9-2.4); AST(SGOT) 12 U/L (15-37); Alanine Aminotransfer ALT/SGPT 26 U/L (13-56); Albumin, Serum 3.9 g/dL (3.2-5.0); Alkaline Phosphatase 62 U/L (45-117); Anion Gap 7 (5-15); BUN 26 mg/dL (7-18); BUN/Creat Ratio 37.2 RATIO (10-20); Calcium,Total 9.1 mg/dL (8.5-10.1); Chloride 105 mmol/L (98-107); EST Glomerular Filtration Rate 90 mL/min (>60); Est Glom Filt Rate - Afr Amer 108 mL/min (>60); Globulin 3.4 g/dL (2.2-4.2); Glucose 117 mg/dL (74-106); Potassium 4.8 mmol/L (3.5-5.1); Protein, Total 7.3 g/dL (6.4-8.2); Sodium Level 135 mmol/L (136-145)
== END | disposition home or self-care (01) ==
LOC: POLAB3 16:36
PROVIDERS: PCP Family Medicine Geriatric Medicine; Visit Provider Family Medicine Geriatric Medicine
DX: I10 Essential (primary) hypertension (principal); E11.9 Type 2 diabetes mellitus without complications; E55.9 Vitamin D deficiency, unspecified
CPT/HCPCS: 36415; 80053; 82306; 84443; 85025

== ENCOUNTER → 2022-05-13 | Outpatient (CLI) | payer MEDICARE, SELFPAY ==
[2022-05-13 16:10] LABS: Absolute Lymphocyte Count 2.92 X10^3/uL (0.83-4.51); Basophil# 0.05 X10^3/uL; Basophil% 0.6 % (0-1); Eosinophil# 0.21 X10^3/uL; Eosinophils% 2.4 % (0-5); Hematocrit 36.3 % (37-47); Hemoglobin 10.8 g/dL (12.0-15.0); Lymphocyte # 2.92 X10^3/ul (0.83-4.51); Lymphocyte % 33.3 % (19-41); Mean Corp Hgb Conc 29.8 g/dL (32-36); Mean Corpuscular Hgb 24.6 pg (27.0-32.0); Mean Corpuscular Volume 82.7 fL (81-99); Mean Platelet Vol. 8.8 fl (6.2-12.0); Monocyte# 0.62 X10^3/uL; Monocyte% 7.1 % (0-10); NRBC Flagged by Analyzer 0 % (0-5); Neutrophil # 4.97 X10^3/uL (2.7-7.7); Neutrophil % 56.5 % (47-70); Platelet Count 450 K/mm3 (150-450); RBC Distribution Width CV 16.8 % (11.6-14.6); RBC Distribution Width SD 50.2 fl (35.1-43.9); Red Blood Count 4.39 M/mm3 (4.2-5.4); White Blood Count 8.8 K/mm3 (4.4-11.0)
== END | disposition home or self-care (01) ==
LOC: LAB 15:56
PROVIDERS: PCP Family Medicine Geriatric Medicine; Referring Provider Family Medicine Geriatric Medicine; Visit Provider Family Medicine Geriatric Medicine
DX: D64.9 Anemia, unspecified (principal)
CPT/HCPCS: 36415; 85025

== ENCOUNTER → 2022-10-23 | Outpatient (CLI) | payer MEDICARE, SELFPAY ==
[2022-10-23 17:05] LABS: Absolute Lymphocyte Count 3.11 X10^3/uL (0.83-4.51); Absolute Neutrophil Count 5.3 X10^3/uL (2.0-7.7); Basophil# 0.06 X10^3/uL; Basophil% 0.6 % (0-1); Eosinophils% 1.1 % (0-5); Hematocrit 32.7 % (37-47); Hemoglobin 9.8 g/dL (12.0-15.0); Lymphocyte # 3.11 X10^3/ul (0.83-4.51); Lymphocyte % 33.5 % (19-41); Mean Corpuscular Hgb 23.4 pg (27.0-32.0); Mean Platelet Vol. 8.9 fl (6.2-12.0); Monocyte# 0.66 X10^3/uL; Monocyte% 7.1 % (0-10); NRBC Flagged by Analyzer 0 % (0-5); Neutrophil # 5.33 X10^3/uL (2.7-7.7); Neutrophil % 57.4 % (47-70); Platelet Count 526 K/mm3 (150-450); RBC Distribution Width CV 18.6 % (11.6-14.6); RBC Distribution Width SD 51.4 fl (35.1-43.9); Red Blood Count 4.19 M/mm3 (4.2-5.4); White Blood Count 9.3 K/mm3 (4.4-11.0)
[2022-10-23 17:41] LABS: Vitamin D,25 Hydroxy 50.5 ng/mL
[2022-10-23 18:10] LABS: ALB/GLOB Ratio 1.1 RATIO (0.9-2.4); AST(SGOT) 12 U/L (15-37); Alanine Aminotransfer ALT/SGPT 24 U/L (13-56); Albumin, Serum 3.9 g/dL (3.2-5.0); Alkaline Phosphatase 54 U/L (45-117); Anion Gap 12 (5-15); BUN 30 mg/dL (7-18); BUN/Creat Ratio 31.4 RATIO (10-20); Calcium,Total 8.9 mg/dL (8.5-10.1); Chloride 104 mmol/L (98-107); Creatinine, Serum 0.96 mg/dL (0.55-1.02); EST Glomerular Filtration Rate 62 mL/min (>60); Est Glom Filt Rate - Afr Amer 75 mL/min (>60); Globulin 3.7 g/dL (2.2-4.2); Glucose 117 mg/dL (74-106); Potassium 4.9 mmol/L (3.5-5.1); Protein, Total 7.6 g/dL (6.4-8.2); Sodium Level 134 mmol/L (136-145); Thyroid Stim Hormone (TSH) 1.41 uIU/mL (0.358-3.74)
== END | disposition home or self-care (01) ==
PROVIDERS: PCP Family Medicine Geriatric Medicine; Visit Provider Family Medicine Geriatric Medicine
DX: E55.9 Vitamin D deficiency, unspecified (principal); E11.65 Type 2 diabetes mellitus with hyperglycemia; I10 Essential (primary) hypertension
CPT/HCPCS: 36415; 80053; 82306; 84443; 85025

== ENCOUNTER → 2023-03-26 | Outpatient (CLI) | payer MEDICARE, SELFPAY ==
--- NOTE | 2023-03-26 10:20 | BI_ITS ---
MAMMOGRAPHY - BILATERAL SCREENING REASON FOR EXAM: Female, 67 years old. Routine annual screening examination. PERTINENT HISTORY: Non-contributory. TECHNIQUE: Digital bilateral breast tyree (3D mammographic acquisition) in the CC and MLO projections. 2-D mediolateral oblique (MLO) and craniocaudad (CC) views of both breasts were obtained. CAD: Full Field Digital Mammography with Computer Added Detection was performed. COMPARISON: Mammogram from 11/12/2018, 10/16/2016. FINDINGS: Breast Composition: There are scattered areas of fibroglandular density. There are no dominant masses or suspicious calcifications. No other significant abnormalities are identified. There has been no significant change since the prior study. BI/SCRN MAMM (CAD)W/TYREE BILAT IMPRESSION: Stable bilateral screening mammogram. Yearly follow-up mammogram recommended. (A) ASSESSMENT CATEGORY: BIRADS Category 1: Negative. A letter regarding these results will be sent to the patient by the facility within 30 days. Approximately 10% of breast cancers are not detected by mammography. A normal mammogram should not delay biopsy of a clinically suspicious abnormality. Electronically Signed: Nehemias Finch DO at 14:05 EDT ,
--- NOTE | 2023-03-26 10:27 | BD_ITS ---
STUDY: DUAL ENERGY X-RAY ABSORPTIOMETRY / DXA REASON FOR EXAM: Female, 67 years old. [id number] TECHNIQUE: Bone Mineral Density (BMD) measurements of both forearms were obtained. COMPARISON: None. FINDINGS: Right Forearm: g/cm2 (0.516) / T-score (-1.2) / Z-score (0.5) Left Forearm: g/cm2 (0.505) / T-score (-1.4) / Z-score (0.3) BD/Dexa Bone Density/Append Skel IMPRESSION: The patient is considered osteopenic as outlined below according to World [employer] Organization (WHO) criteria with a low fracture risk. Reference Information: The T-score is the number of standard deviations above or below the standard which is normal for young adults at their peak bone mineral density. The World Health Organization (WHO) interprets the T-scores as follows: Above -1 Normal bone density Between -1 and -2.5 Osteopenia Equal to / or below -2.5 Osteoporosis As a practical clinical guideline, osteopenia may be graded as follows: Mild -1 through -1.5 Moderate -1.6 through -2.0 Severe -2.1 through -2.4 The Z-score is the number of standard deviations above or below age-matched controls. A Z-score of less than -1.5 would be considered abnormal. References: 1. NIH Osteoporosis and Related Bone Diseases www osteo.org 2. International Society for Clinical Densitometry www iscd.org 3. National Osteoporosis Foundation www nof.org Electronically Signed: Ham Kaplan MD at 12:22 EDT ,
== END | disposition home or self-care (01) ==
PROVIDERS: PCP Family Medicine Geriatric Medicine; Referring Provider Family Medicine Geriatric Medicine; Visit Provider Family Medicine Geriatric Medicine
DX: Z12.31 Encounter for screening mammogram for malignant neoplasm of breast (principal); Z78.0 Asymptomatic menopausal state
CPT/HCPCS: 77063; 77067; 77081

== ENCOUNTER → 2023-04-24 | Outpatient (CLI) | payer MEDICARE, SELFPAY ==
[2023-04-24 13:48] LABS: Absolute Lymphocyte Count 2.26 X10^3/uL (0.83-4.51); Absolute Neutrophil Count 3.7 X10^3/uL (2.0-7.7); Basophil# 0.05 X10^3/uL; Basophil% 0.8 % (0-1); Eosinophil# 0.07 X10^3/uL; Eosinophils% 1.1 % (0-5); Hematocrit 29.3 % (37-47); Hemoglobin 8.6 g/dL (12.0-15.0); Lymphocyte # 2.26 X10^3/ul (0.83-4.51); Lymphocyte % 34.7 % (19-41); Mean Corp Hgb Conc 29.4 g/dL (32-36); Mean Corpuscular Volume 81.6 fL (81-99); Mean Platelet Vol. 8.8 fl (6.2-12.0); Monocyte# 0.45 X10^3/uL; Monocyte% 6.9 % (0-10); NRBC Flagged by Analyzer 0 % (0-5); Neutrophil # 3.67 X10^3/uL (2.7-7.7); Neutrophil % 56.3 % (47-70); Platelet Count 391 K/mm3 (150-450); RBC Distribution Width CV 19.9 % (11.6-14.6); Red Blood Count 3.59 M/mm3 (4.2-5.4); White Blood Count 6.5 K/mm3 (4.4-11.0)
[2023-04-24 14:34] LABS: Vitamin D,25 Hydroxy 64.6 ng/mL
[2023-04-24 14:37] LABS: ALB/GLOB Ratio 1.1 RATIO (0.9-2.4); AST(SGOT) 12 U/L (15-37); Alanine Aminotransfer ALT/SGPT 17 U/L (13-56); Albumin, Serum 3.4 g/dL (3.2-5.0); Alkaline Phosphatase 49 U/L (45-117); Anion Gap 4 (5-15); BUN 28 mg/dL (7-18); BUN/Creat Ratio 33.9 RATIO (10-20); Calcium,Total 8.5 mg/dL (8.5-10.1); Chloride 113 mmol/L (98-107); Creatinine, Serum 0.83 mg/dL (0.55-1.02); EST Glomerular Filtration Rate 73 mL/min (>60); Est Glom Filt Rate - Afr Amer 89 mL/min (>60); Globulin 3.1 g/dL (2.2-4.2); Glucose 100 mg/dL (74-106); Potassium 4.5 mmol/L (3.5-5.1); Protein, Total 6.5 g/dL (6.4-8.2); Sodium Level 139 mmol/L (136-145); Thyroid Stim Hormone (TSH) 1.29 uIU/mL (0.358-3.74)
== END | disposition home or self-care (01) ==
LOC: LAB 12:36
PROVIDERS: PCP Family Medicine Geriatric Medicine; Referring Provider Family Medicine Geriatric Medicine; Visit Provider Family Medicine Geriatric Medicine
DX: E11.65 Type 2 diabetes mellitus with hyperglycemia (principal); I10 Essential (primary) hypertension; E55.9 Vitamin D deficiency, unspecified
CPT/HCPCS: 36415; 80053; 82306; 84443; 85025

== ENCOUNTER → 2023-05-22 | Outpatient (CLI) | payer MEDICARE, SELFPAY ==
[2023-05-22 13:47] LABS: Amphetamine Urine VISTA NEGATIVE (<1000 ng/mL); Barbiturate Urine VISTA NEGATIVE (< 200 ng/mL); Benzodiazepine Urine VISTA NEGATIVE (< 200 ng/mL); Cocaine Urine VISTA NEGATIVE (< 300 ng/mL); Ecstacy Urine VISTA NEGATIVE (< 500 ng/mL); Methadone Urine VISTA NEGATIVE (< 300 ng/mL); PCP Urine VISTA NEGATIVE (< 25 ng/mL); THC Urine VISTA NEGATIVE (< 50 ng/mL); Vista UDS pH Range 5
== END | disposition home or self-care (01) ==
LOC: LAB 12:36
PROVIDERS: PCP Family Medicine Geriatric Medicine; Referring Provider Anesthesiology Pain Medicine; Visit Provider Anesthesiology Pain Medicine
DX: F11.20 Opioid dependence, uncomplicated (principal)
CPT/HCPCS: 80307

== ENCOUNTER → 2023-07-16 | Outpatient (CLI) | payer MEDICARE, SELFPAY ==
[2023-07-16 11:11] LABS: Absolute Lymphocyte Count 1.99 X10^3/uL (0.83-4.51); Absolute Neutrophil Count 5.8 X10^3/uL (2.0-7.7); Basophil# 0.05 X10^3/uL; Basophil% 0.6 % (0-1); Eosinophils% 1.1 % (0-5); Hematocrit 29.3 % (37-47); Hemoglobin 8.2 g/dL (12.0-15.0); Lymphocyte # 1.99 X10^3/ul (0.83-4.51); Lymphocyte % 22.7 % (19-41); Mean Corpuscular Hgb 22.7 pg (27.0-32.0); Mean Corpuscular Volume 81.2 fL (81-99); Mean Platelet Vol. 8.5 fl (6.2-12.0); Monocyte# 0.76 X10^3/uL; Monocyte% 8.7 % (0-10); NRBC Flagged by Analyzer 0 % (0-5); Neutrophil # 5.81 X10^3/uL (2.7-7.7); Neutrophil % 66.4 % (47-70); Platelet Count 672 K/mm3 (150-450); RBC Distribution Width CV 18.4 % (11.6-14.6); RBC Distribution Width SD 54.4 fl (35.1-43.9); Red Blood Count 3.61 M/mm3 (4.2-5.4); White Blood Count 8.8 K/mm3 (4.4-11.0)
[2023-07-16 12:22] LABS: Ferritin 6 ng/mL (8-252); Iron 20 ug/dL (50-170); Iron Binding Capacity,Total 496 ug/dL (250-450)
== END | disposition home or self-care (01) ==
PROVIDERS: PCP Family Medicine Geriatric Medicine; Referring Provider Family Medicine Geriatric Medicine; Visit Provider Family Medicine Geriatric Medicine
DX: D50.9 Iron deficiency anemia, unspecified (principal)
CPT/HCPCS: 36415; 82728; 82746; 83540; 83550; 85025

== ENCOUNTER 2023-09-03 14:30 | Outpatient (CLI) | payer MEDICARE, SELFPAY ==
[2023-09-03 14:47] VITALS: BP 129/57; PULSE 85; RESP 16; TEMP 35.8; O2SAT 95; BMI 56.5
[2023-09-03] MEDS: 0.9% NaCl IVPB Med Flush (250 mL) 15 ML IV (15:01)
[2023-09-03] MEDS: 0.9% NaCl Peripheral Flush Adult/Peds IV (15:01)
[2023-09-03] MEDS: Iron Sucrose Complex 200 MG in 0.9% Normal Saline (100mL Bag) 100 ML 220 MG IV (15:02)
[2023-09-03 15:49] VITALS: BP 130/50; PULSE 79; RESP 16
== END 2023-09-03 14:31 | disposition home or self-care (01) ==
LOC: MEDOUTP 14:30
PROVIDERS: PCP Family Medicine Geriatric Medicine; Referring Provider Family Medicine Geriatric Medicine; Visit Provider Family Medicine Geriatric Medicine
DX: D50.9 Iron deficiency anemia, unspecified (principal)
CPT/HCPCS: 96365; J1756; J7050; A4216

== ENCOUNTER 2023-09-05 14:24 | Outpatient (CLI) | payer MEDICARE, SELFPAY ==
[2023-09-05 14:32] VITALS: BP 146/49; PULSE 88; RESP 16; TEMP 36.1; O2SAT 95; BMI 56.5
[2023-09-05] MEDS: 0.9% NaCl Peripheral Flush Adult/Peds IV (14:57)
[2023-09-05] MEDS: Iron Sucrose Complex 200 MG in 0.9% Normal Saline (100mL Bag) 100 ML 220 MG IV (14:58)
[2023-09-05] MEDS: 0.9% NaCl IVPB Med Flush (250 mL) 15 ML IV (14:58)
[2023-09-05 15:44] VITALS: BP 138/54; PULSE 84; RESP 16; TEMP 35.8; O2SAT 97
== END 2023-09-05 14:25 | disposition home or self-care (01) ==
LOC: MEDOUTP 14:24
PROVIDERS: PCP Family Medicine Geriatric Medicine; Referring Provider Family Medicine Geriatric Medicine; Visit Provider Family Medicine Geriatric Medicine
DX: D50.9 Iron deficiency anemia, unspecified (principal)
CPT/HCPCS: 96365; J1756; J7050; A4216

== ENCOUNTER 2023-09-08 13:48 | Outpatient (CLI) | payer MEDICARE, SELFPAY ==
[2023-09-08] MEDS: 0.9% NaCl IVPB Med Flush (250 mL) 15 ML IV (14:07)
[2023-09-08] MEDS: 0.9% NaCl Peripheral Flush Adult/Peds IV (14:07)
[2023-09-08] MEDS: Iron Sucrose Complex 200 MG in 0.9% Normal Saline (100mL Bag) 100 ML 220 MG IV (14:07)
[2023-09-08 14:09] VITALS: BP 154/64; PULSE 92; RESP 18; TEMP 36.4; O2SAT 95; BMI 56.5
[2023-09-08 14:47] VITALS: BP 156/62; PULSE 92
== END 2023-09-08 13:49 | disposition home or self-care (01) ==
LOC: MEDOUTP 13:48
PROVIDERS: PCP Family Medicine Geriatric Medicine; Referring Provider Family Medicine Geriatric Medicine; Visit Provider Family Medicine Geriatric Medicine
DX: D50.9 Iron deficiency anemia, unspecified (principal)
CPT/HCPCS: 96365; J1756; J7050; A4216

== ENCOUNTER 2023-09-12 13:25 | Outpatient (CLI) | payer MEDICARE, SELFPAY ==
[2023-09-12 13:59] VITALS: BP 138/62; PULSE 89; RESP 14; TEMP 35.9; O2SAT 96; BMI 56.5
[2023-09-12] MEDS: 0.9% NaCl VAD Flush IV (14:37)
[2023-09-12] MEDS: 0.9% NaCl IVPB Med Flush (250 mL) 15 ML IV (14:37)
[2023-09-12] MEDS: Iron Sucrose Complex (Venofer) 200 MG in 0.9% NaCl 100 ML 220 MG IV (14:37)
[2023-09-12 15:17] VITALS: BP 162/72; PULSE 93; RESP 16; TEMP 35.8; O2SAT 100
== END 2023-09-12 13:26 | disposition home or self-care (01) ==
LOC: MEDOUTP 13:25
PROVIDERS: PCP Family Medicine Geriatric Medicine; Referring Provider Family Medicine Geriatric Medicine; Visit Provider Family Medicine Geriatric Medicine
DX: D50.9 Iron deficiency anemia, unspecified (principal)
CPT/HCPCS: 96365; J1756; J7050; A4216

== ENCOUNTER 2023-09-15 12:47 | Outpatient (CLI) | payer MEDICARE, SELFPAY ==
[2023-09-15] MEDS: Iron Sucrose Complex 200 MG in 0.9% Normal Saline (100mL Bag) 100 ML 220 MG IV (13:26)
[2023-09-15] MEDS: 0.9% NaCl IVPB Med Flush (250 mL) 15 ML IV (13:26)
[2023-09-15] MEDS: 0.9% NaCl Peripheral Flush Adult/Peds IV (13:26)
[2023-09-15 13:27] VITALS: BP 139/63; PULSE 89; RESP 18; TEMP 36; O2SAT 94; BMI 56.5
[2023-09-15 14:27] VITALS: BP 152/82; PULSE 89; RESP 16; TEMP 36.2; O2SAT 100
== END 2023-09-15 12:48 | disposition home or self-care (01) ==
LOC: MEDOUTP 12:48
PROVIDERS: PCP Family Medicine Geriatric Medicine; Referring Provider Family Medicine Geriatric Medicine; Visit Provider Family Medicine Geriatric Medicine
DX: D50.9 Iron deficiency anemia, unspecified (principal)
CPT/HCPCS: 96365; J1756; J7050; A4216

== ENCOUNTER → 2023-10-23 | Outpatient (CLI) | payer MEDICARE, SELFPAY ==
[2023-10-23 13:31] LABS: Absolute Lymphocyte Count 2.02 X10^3/uL (0.83-4.51); Absolute Neutrophil Count 3.4 X10^3/uL (2.0-7.7); Basophil# 0.04 X10^3/uL; Basophil% 0.7 % (0-1); Eosinophil# 0.14 X10^3/uL; Eosinophils% 2.3 % (0-5); Hematocrit 36.2 % (37-47); Hemoglobin 10.4 g/dL (12.0-15.0); Lymphocyte # 2.02 X10^3/ul (0.83-4.51); Lymphocyte % 32.8 % (19-41); Mean Corp Hgb Conc 28.7 g/dL (32-36); Mean Corpuscular Hgb 27.3 pg (27.0-32.0); Mean Platelet Vol. 9.3 fl (6.2-12.0); Monocyte% 8.1 % (0-10); NRBC Flagged by Analyzer 0 % (0-5); Neutrophil # 3.43 X10^3/uL (2.7-7.7); Neutrophil % 55.8 % (47-70); POSITIVE MORPHOLOGY YES; Platelet Count 390 K/mm3 (150-450); RBC Distribution Width CV 24.9 % (11.6-14.6); RBC Distribution Width SD 82.4 fl (35.1-43.9); Red Blood Count 3.81 M/mm3 (4.2-5.4); White Blood Count 6.2 K/mm3 (4.4-11.0)
[2023-10-23 13:56] LABS: Vitamin D,25 Hydroxy 64.9 ng/mL
[2023-10-23 13:57] LABS: Differential Indicated SCAN CRITERIA MET
[2023-10-23 13:59] LABS: Anisocytosis 2+; Differential Comment SCANNED; Macrocytosis 1+; Microcytosis 1+
[2023-10-23 14:00] LABS: AST(SGOT) 13 U/L (15-37); Alanine Aminotransfer ALT/SGPT 15 U/L (13-56); Albumin, Serum 3.3 g/dL (3.2-5.0); Alkaline Phosphatase 76 U/L (45-117); Anion Gap 7 (5-15); BUN 22 mg/dL (7-18); BUN/Creat Ratio 39.9 RATIO (10-20); Calcium,Total 8.7 mg/dL (8.5-10.1); Chloride 110 mmol/L (98-107); Creatinine, Serum 0.55 mg/dL (0.55-1.02); EST Glomerular Filtration Rate 117 mL/min (>60); Est Glom Filt Rate - Afr Amer 141 mL/min (>60); Globulin 3.2 g/dL (2.2-4.2); Glucose 100 mg/dL (74-106); Potassium 4.5 mmol/L (3.5-5.1); Protein, Total 6.5 g/dL (6.4-8.2); Sodium Level 141 mmol/L (136-145); Thyroid Stim Hormone (TSH) 1.51 uIU/mL (0.358-3.74)
== END | disposition home or self-care (01) ==
LOC: LAB 12:23
PROVIDERS: PCP Family Medicine Geriatric Medicine; Referring Provider Family Medicine Geriatric Medicine; Visit Provider Family Medicine Geriatric Medicine
DX: E11.65 Type 2 diabetes mellitus with hyperglycemia (principal); I10 Essential (primary) hypertension; E55.9 Vitamin D deficiency, unspecified
CPT/HCPCS: 36415; 80053; 82306; 84443; 85025

== ENCOUNTER → 2024-04-21 | Outpatient (CLI) | payer MEDICARE, SELFPAY ==
[2024-04-21 12:35] LABS: Absolute Lymphocyte Count 1.46 X10^3/uL (0.83-4.51); Absolute Neutrophil Count 3.4 X10^3/uL (2.0-7.7); Basophil# 0.03 X10^3/uL; Basophil% 0.6 % (0-1); Eosinophil# 0.11 X10^3/uL; Hematocrit 35.2 % (37-47); Hemoglobin 10.4 g/dL (12.0-15.0); Lymphocyte # 1.46 X10^3/ul (0.83-4.51); Mean Corp Hgb Conc 29.5 g/dL (32-36); Mean Corpuscular Hgb 26.9 pg (27.0-32.0); Mean Corpuscular Volume 91.2 fL (81-99); Mean Platelet Vol. 8.9 fl (6.2-12.0); Monocyte% 7.4 % (0-10); NRBC Flagged by Analyzer 0 % (0-5); Neutrophil % 62.8 % (47-70); Platelet Count 329 K/mm3 (150-450); RBC Distribution Width CV 16.5 % (11.6-14.6); RBC Distribution Width SD 54.6 fl (35.1-43.9); Red Blood Count 3.86 M/mm3 (4.2-5.4); White Blood Count 5.4 K/mm3 (4.4-11.0)
[2024-04-21 13:07] LABS: Vitamin D,25 Hydroxy 42.6 ng/mL
[2024-04-21 13:16] LABS: Hemoglobin A1c 6.5 % (3.8-5.6)
[2024-04-21 13:40] LABS: ALB/GLOB Ratio 1.2 RATIO (0.9-2.4); AST(SGOT) 14 U/L (15-37); Alanine Aminotransfer ALT/SGPT 20 U/L (13-56); Albumin, Serum 3.6 g/dL (3.2-5.0); Alkaline Phosphatase 74 U/L (45-117); Anion Gap 8 (5-15); BUN 20 mg/dL (7-18); Calcium,Total 8.7 mg/dL (8.5-10.1); Chloride 110 mmol/L (98-107); Creatinine, Serum 0.57 mg/dL (0.55-1.02); EST Glomerular Filtration Rate 112 mL/min (>60); Est Glom Filt Rate - Afr Amer 135 mL/min (>60); Ferritin 6 ng/mL (8-252); Globulin 3.1 g/dL (2.2-4.2); Glucose 133 mg/dL (74-106); Iron 35 ug/dL (50-170); Potassium 4.4 mmol/L (3.5-5.1); Protein, Total 6.7 g/dL (6.4-8.2); Sodium Level 139 mmol/L (136-145)
== END | disposition home or self-care (01) ==
LOC: LAB 11:47
PROVIDERS: PCP Family Medicine Geriatric Medicine; Visit Provider Family Medicine Geriatric Medicine
DX: E11.65 Type 2 diabetes mellitus with hyperglycemia (principal); E55.9 Vitamin D deficiency, unspecified; I10 Essential (primary) hypertension; D50.9 Iron deficiency anemia, unspecified
CPT/HCPCS: 36415; 80053; 82306; 82728; 83036; 83540; 85025

== ENCOUNTER → 2024-06-16 | Outpatient (CLI) | payer MEDICARE, SELFPAY | END | disposition home or self-care (01) | PROVIDERS: PCP Family Medicine Geriatric Medicine; Visit Provider Family Medicine Geriatric Medicine | DX: N39.0 Urinary tract infection, site not specified (principal) | CPT/HCPCS: 87077; 87086; 87088; 87186 ==

== ENCOUNTER → 2024-09-16 | Outpatient (CLI) | payer MEDICARE, SELFPAY ==
[2024-09-16 11:15] LABS: Amphetamine Urine VISTA NEGATIVE (<1000 ng/mL); Barbiturate Urine VISTA NEGATIVE (< 200 ng/mL); Benzodiazepine Urine VISTA NEGATIVE (< 200 ng/mL); Cocaine Urine VISTA NEGATIVE (< 300 ng/mL); Ecstacy Urine VISTA NEGATIVE (< 500 ng/mL); Methadone Urine VISTA NEGATIVE (< 300 ng/mL); PCP Urine VISTA NEGATIVE (< 25 ng/mL); THC Urine VISTA NEGATIVE (< 50 ng/mL); Vista UDS pH Range 5
== END | disposition home or self-care (01) ==
LOC: LAB 09:52
PROVIDERS: PCP Family Medicine Geriatric Medicine; Referring Provider Anesthesiology Pain Medicine; Visit Provider Anesthesiology Pain Medicine
DX: F11.20 Opioid dependence, uncomplicated (principal)
CPT/HCPCS: 80307

== ENCOUNTER → 2024-10-12 | Outpatient (CLI) | payer MEDICARE, SELFPAY ==
[2024-10-12 11:18] LABS: Absolute Lymphocyte Count 1.63 X10^3/uL (0.83-4.51); Absolute Neutrophil Count 6.7 X10^3/uL (2.0-7.7); Basophil# 0.05 X10^3/uL; Basophil% 0.5 % (0-1); Eosinophil# 0.09 X10^3/uL; Hematocrit 46.1 % (37-47); Hemoglobin 14.6 g/dL (12.0-15.0); Lymphocyte # 1.63 X10^3/ul (0.83-4.51); Lymphocyte % 17.8 % (19-41); Mean Corp Hgb Conc 31.7 g/dL (32-36); Mean Corpuscular Hgb 28.6 pg (27.0-32.0); Mean Corpuscular Volume 90.2 fL (81-99); Mean Platelet Vol. 9.3 fl (6.2-12.0); Monocyte# 0.59 X10^3/uL; Monocyte% 6.4 % (0-10); NRBC Flagged by Analyzer 0 % (0-5); Neutrophil # 6.74 X10^3/uL (2.7-7.7); Neutrophil % 73.8 % (47-70); Platelet Count 350 K/mm3 (150-450); RBC Distribution Width CV 15.6 % (11.6-14.6); RBC Distribution Width SD 51.7 fl (35.1-43.9); Red Blood Count 5.11 M/mm3 (4.2-5.4); White Blood Count 9.2 K/mm3 (4.4-11.0)
[2024-10-12 11:55] LABS: Vitamin D,25 Hydroxy 37.8 ng/mL
[2024-10-12 12:02] LABS: ALB/GLOB Ratio 0.9 RATIO (0.9-2.4); AST(SGOT) 14 U/L (15-37); Alanine Aminotransfer ALT/SGPT 23 U/L (13-56); Albumin, Serum 3.7 g/dL (3.2-5.0); Alkaline Phosphatase 92 U/L (45-117); Anion Gap 5 (5-15); BUN 19 mg/dL (7-18); BUN/Creat Ratio 23.7 RATIO (10-20); Calcium,Total 9.6 mg/dL (8.5-10.1); Chloride 103 mmol/L (98-107); EST Glomerular Filtration Rate 76 mL/min (>60); Est Glom Filt Rate - Afr Amer 91 mL/min (>60); Ferritin 15 ng/mL (8-252); Glucose 147 mg/dL (74-106); Iron 79 ug/dL (50-170); Iron Binding Capacity,Total 331 ug/dL (250-450); PERCENT IRON SATURATION 23.9 % (15.0-55.0); Potassium 5.3 mmol/L (3.5-5.1); Protein, Total 7.7 g/dL (6.4-8.2); Sodium Level 136 mmol/L (136-145)
== END | disposition home or self-care (01) ==
LOC: POLAB3 10:50
PROVIDERS: PCP Family Medicine Geriatric Medicine; Visit Provider Family Medicine Geriatric Medicine
DX: E11.65 Type 2 diabetes mellitus with hyperglycemia (principal); I10 Essential (primary) hypertension; E55.9 Vitamin D deficiency, unspecified; D50.9 Iron deficiency anemia, unspecified
CPT/HCPCS: 36415; 80053; 82306; 82728; 83540; 83550; 84443; 85025

== ENCOUNTER → 2024-10-29 | Outpatient (CLI) | payer MEDICARE, SELFPAY ==
[2024-10-29 09:59] LABS: Anion Gap 7 (5-15); BUN 19 mg/dL (7-18); BUN/Creat Ratio 27.1 RATIO (10-20); Chloride 106 mmol/L (98-107); EST Glomerular Filtration Rate 88 mL/min (>60); Est Glom Filt Rate - Afr Amer 107 mL/min (>60); Glucose 139 mg/dL (74-106); Potassium 4.3 mmol/L (3.5-5.1); Sodium Level 138 mmol/L (136-145)
== END | disposition home or self-care (01) ==
LOC: LAB 08:23
PROVIDERS: PCP Family Medicine Geriatric Medicine; Referring Provider Family Medicine Geriatric Medicine; Visit Provider Family Medicine Geriatric Medicine
DX: I10 Essential (primary) hypertension (principal)
CPT/HCPCS: 36415; 80048